=== PATIENT | female | born 1995 | race Caucasian/White ===

== ENCOUNTER → 2017-04-11 | Outpatient (CLI) | payer BC, OTHER ==
[~2017-04-11] MED LIST: ADVIN10/60 INH; ALBUAER19 INH; DROS1TAB24 PO; TRAZ50TA35 PO
[2017-04-13 14:19] LABS: CHLAMYDIA TRACH RNA*** NOT DETECTED (NOT DETECTED); GC (NEIS GONORRHOEAE)RNA** NOT DETECTED (NOT DETECTED)
== END | disposition home or self-care (01) ==
LOC: C.LABSPEC 15:18
PROVIDERS: ATTEND Obstetrics & Gynecology
DX: Z12.4 Encounter for screening for malignant neoplasm of cervix (principal)

== ENCOUNTER → 2017-04-11 | Outpatient (CLI) | payer BC, OTHER | END | disposition home or self-care (01) | LOC: C.PAPS 16:18 | PROVIDERS: ATTEND Obstetrics & Gynecology | DX: Z12.4 Encounter for screening for malignant neoplasm of cervix (principal) ==

== ENCOUNTER → 2017-04-15 | Outpatient (CLI) | payer BC ==
[2017-04-15 15:28] LABS: URINE APPEARANCE CLOUDY (CLEAR); URINE BILIRUBIN NEG (NEG); URINE COLOR YELLOW; URINE EPITHELIAL CELL AUTO >30 /lpf (0-5); URINE NITRITE NEG (NEG); URINE PH 7.5 (4.5-7.5); URINE SPECIFIC GRAVITY 1.015 (1.000-1.030); UROBILINOGEN NEG (NEG)
[2017-04-15 15:32] LABS: MANUAL MICROSCOPIC REQUIRED? NO; REVIEW REQ? YES
== END | disposition home or self-care (01) ==
LOC: C.LAB1850 11:35
PROVIDERS: ATTEND Obstetrics & Gynecology
DX: R31.9 Hematuria, unspecified (principal)

== ENCOUNTER 2023-09-26 14:25 | Inpatient (IN) ==
[2023-09-26] MEDS ORDERED: OXYTOCIN 30 UNITS/NSS 30 UNITS/500 ML BAG IV PRN (15:23)
[2023-09-26] MEDS ORDERED: LIDOCAINE 1% LOCAL 20 ML VIAL INFIL PRN (15:23)
[2023-09-26 15:49] LABS: Total Protein Urine Random 23.1 mg/dl (0-11.9)
[2023-09-26 15:55] LABS: Hematocrit (blood only) 36.4 % (37.0-47.0); Hemoglobin 11.9 g/dl (12.0-16.0); Mean Corpuscular Hemoglobin 25.8 pg (25.0-34.0); Mean Corpuscular Hgb Conc 32.7 g/dL (32.0-36.0); Mean Platelet Volume 11.8 fL (9.4-12.4); Platelet Count 203 K/uL (130-400); RDW Coefficient of Variation 15.8 % (11.5-14.5); RDW Standard Deviation 44.6 fL (36.4-46.3); Red Blood Count 4.61 M/uL (4.20-5.40); White Blood Count 10.64 K/ul (4.8-10.8)
[2023-09-26 15:55] LABS: Creatinine Urine Random 68.7 mg/dl; Protein Creatinine Ratio Urine 0.3 (0-0.2)
[2023-09-26 16:07] LABS: Alanine Aminotransferase 9 U/L (7-52); Albumin Globulin Ratio 0.9 (0.9-2); Alkaline Phosphatase 131 U/L (34-104); Anion Gap 7 (3-11); Aspartate Aminotransferase 18 U/L (13-39); BUN Creatinine Ratio 24.2 (10-20); Bilirubin,Total 0.2 mg/dl (0.2-1.0); Blood Urea Nitrogen 15 mg/dl (6-23); Calcium 8.9 mg/dl (8.6-10.3); Carbon Dioxide 27 mmol/L (21-32); Chloride 102 mmol/L (98-107); Est GFR (African American) 143.2 ml/min; Est GFR (Non-African American) 123.6 ml/min; Globulin 3.3 gm/dl (2.5-4.0); Glucose 90 mg/dl (70-99(Fasting)); Potassium 4.2 mmol/L (3.5-5.1); Sodium 136 mmol/L (136-145); Total Protein 6.3 gm/dl (6.0-8.3)
--- NOTE | 2023-09-26 16:15 | History & Physical Report ---
Date of Service September 26, 2023 Assessment & Plan (1) Obesity affecting : (2) Elevated blood pressure affecting in third trimester, antepartum: Plan: patient meets criteria for gestational hypertension and possible mild Pre- eclampsia at 37 5/7 weeks. PIH labs are normal except for elevated urine protein/creatinine ratio at 0.3. she has no PET symptoms and urine protein/creatinine ratio was 0.4 on 09/23. Her BP's in L&D on that day were all normal. will begin IOL with cervical balloon in place epidural analgesia when requested recheck PIH labs in 8 hours. (3) Supervision of normal intrauterine in primigravida: (4) GERD (gastroesophageal reflux disease): Plan: Continue home pepcid and Tums Plan Pt is a 27 yo at 37 5/7 WGA presenting to labor and delivery for induction d/t elevated BP, maternal obesity. Blood type; O+, GBS negative, rubella non-immune Jasmine balloon placed. Plan to start oxytocin and rupture membranes later if necessary. Proceed with labor and plan for vaginal delivery. Admission and Anticipated Discharge Date Admission Date: September 26, 2023 History of Present Illness Chief Complaint: elevated blood pressure Primary Care Provider: Ree Nino MD Pt is a 27 y/o female currently at 37 5/7 WGA with an AURORA of 10/12/23 as determined by LMP who is here for induction. Her was complicated by maternal obesity BMI >40 and elevated BP noted in office today. This was the second elevated BP. She was evaluated on 09/23 in L&D- PIH labs and BP's were all normal during her L&D observation. Pt states she is feeling okay today and so far she feels the has gone well. She states she has been out of her valacyclovir since but has not noticed any lesions the last few weeks. No questions at this time. No contractions; active movement; no fluid loss; no bloody show. External FHT and external uterine monitors used; Category I tracing; reactive FHT variability. She is GBS negative. Had regular appointments with OB. Labs: Blood Type O Positive 09/23/23 Antibody Screen NEGATIVE 09/23/23 Hemoglobin 12.3 g/dl (12.0-16.0) 09/23/23 Hematocrit 38.0 % (37.0-47.0) 09/23/23 Mean Corpuscular Volume 80.7 fL (80.0-100.0) 09/23/23 Platelet Count 211 K/uL (130-400) 09/23/23 Rubella IgG Antibody Non Immune (Immune) L 03/03/23 Rapid Plasma Reagin Nonreactive (Nonreactive) 03/03/23 Hepatitis B Surface Antigen. NON-REACTIVE (NON-REACTIVE) 03/03/23 Hepatitis C Antibody (EIA) NON-REACTIVE (NON-REACTIVE) 03/03/23 HIV (1&2) Ag and Ab Confirmation NON-REACTIVE (NON-REACTIVE) 03/03/23 Glucose 1 Hour 50 gm Load 141 mg/dl (70-130) H 04/28/23 OB Optional Labs: Chlamydia trachomatis RNA Not Detected (NotDetected) 03/03/23 Neisseria gonorrhoeae RNA Not Detected (NotDetected) 03/03/23 Thyroid Stimulating Hormone (TSH) 1.590 uIu/ml (0.300-4.500) 11/02/18 Allergies Allergy/AdvReac Type Severity Reaction Status Date / Time No Known Drug Allergies Allergy Unknown Verified 09/26/23 15:39 Home Medications Medication Instructions Recorded Confirmed Type albuterol sulfate 90 mcg/actuation 2 inh inhalation Q4H PRN shortness 05/24/23 09/26/23 Rx aerosol inhaler of breath or wheezing or cough #8.5 grams vit no.[id number] 1 tab PO DAILY 05/27/23 09/26/23 History [ Plus Vitamin-Mineral] valacyclovir 500 mg tablet 500 mg PO BID #60 tabs 09/02/23 09/26/23 Rx (Valtrex) breast pump #1 ea 09/16/23 09/26/23 Rx Patient History Medical History (Updated 09/23/23 @ 20:22 by Latasha Orosco, ) Migraines Vasovagal syncope with IV sticks and dehydration Suicide risk hx of suicidial thoughts- middle school age History of menorrhagia Common migraine without aura History of dysmenorrhea Tiredness Sleep disturbances night terrors Obesity Lactase deficiency Insomnia Generalized anxiety disorder on buspar prior to Encounter for gynecological examination Depression on meds prior to Asthma allergy induced- has rescue inhaler, used approx "awhile ago" Surgical History (Updated 09/23/23 @ 11:22 by Orquidea Mckeon RN) [place] teeth extracted 2019 History of tonsillectomy Family History Family/Other Adopted Mother Ovarian cancer Social History (Updated 09/23/23 @ 11:30 by Orquidea Mckeon RN) Smoking Status: Current every day smoker Tobacco Type: E-cigarettes / Vaping Second Hand Exposure: No; Do You Dip or Chew Tobacco: No; Hx Alcohol Use: No Hx Substance Use: No Preferred Language: Andorran Communication Ability: Effective Visual Impairment: No Limitations Hearing Ability: Normal Farm [employer] Required: No Beliefs That Will Affect Care: None marital status: Single marital status details: [place] (25) [phone] Current Living Situation: Family Current Living Situation Comment: lives with both parents (Tod and Paulino Thompson) current occupational status: employed current occupation: [employer] Feels Safe at Home: Yes Dental Care, Regularly: Yes Seatbelt Use: always Assistive Devices: Glasses Review of Systems no fever, no chills and no sweats no dyspnea no difficulty breathing no chest pain and no palpitations no dysuria no headache(s) no changes in vision Physical Exam Physical Exam: General: Alert, oriented. No acute distress. Cardiac: Regular rate and rhythm, no murmurs, gallops, or rubs. Respiratory: Clear to auscultation bilaterally a/p, no wheezes, rales, or rhonchi. No increased work of breathing. No respiratory distress. Abdomen: Gravid. Reactive FHTs. Position: vertex Lower extremities: No deep calf pain. Lidia's negative bilaterally. Genitourinary: OB Exam Abdomen: + vertex (by ultrasound) and + estimated weight (6-7 pounds) Manual OB Exam: + cervical dilation fingertip, + cervical effacement 70% and + station high (not in pelvis) OB Exam Monitor Tracing: + external FHT monitor used, + external uterine monitor used, + category I and + normal FHT variability speculum was placed vaginally, the cervix was visualized and a Jasmine catheter was inserted into the os with the assistance of a stylet. 40cc of sterile water were instilled into the balloon. the catheter was then placed on traction and secured to her left inner thigh. Results & Data Vital Signs (Past 12 Hours) Vital Signs Pulse BP 09/26/23 16:09 76 09/26/23 16:09 162/88 H 09/26/23 15:59 75 09/26/23 15:59 167/88 H 09/26/23 15:49 83 09/26/23 15:49 171/93 H 09/26/23 15:40 83 09/26/23 15:40 164/94 H 09/26/23 15:29 82 131/76 09/26/23 15:20 85 137/77 09/26/23 15:11 86 153/76 H 09/26/23 14:59 90 164/96 H 09/26/23 14:50 88 160/92 H Code Status & VTE Plan VTE Prophylaxis Plan VTE Prophylaxis will be ordered: No
[2023-09-26] MEDS ORDERED: CALCIUM CARBONATE 500 MG CHEWABLE TAB PO PRN (16:38)
[2023-09-26] MEDS ORDERED: ALBUTEROL HFA 8 GM INHALER INH PRN (16:39)
[2023-09-26] MEDS: LACTATED RINGER'S 1,000 ML IV PRN (17:24)
[2023-09-26] MEDS: OXYTOCIN 30 UNITS/NSS 30 UNITS/500 ML BAG IV PRN (19:03)
[2023-09-26] MEDS: FAMOTIDINE 20 MG TAB PO SCH (21:51)
[2023-09-26 23:30] LABS: Basophils # (auto) 0.04 K/uL (0.00-0.20); Basophils % (auto) 0.3 %; Eosinophils # (auto) 0.15 K/uL (0.00-0.50); Eosinophils % (auto) 1.2 %; Hematocrit (blood only) 38.1 % (37.0-47.0); Immature Granulocytes # (auto) 0.12 K/uL (0.01-0.20); Lymphocytes # (auto) 2.15 K/uL (1.20-3.40); Lymphocytes % (auto) 17.5 %; Mean Corpuscular Hemoglobin 25.3 pg (25.0-34.0); Mean Corpuscular Hgb Conc 31.5 g/dL (32.0-36.0); Mean Corpuscular Volume 80.4 fL (80.0-100.0); Monocytes # (auto) 0.55 K/uL (0.11-0.59); Monocytes % (auto) 4.5 %; Neutrophils % (auto) 75.5 %; Platelet Count 222 K/uL (130-400); RDW Coefficient of Variation 15.6 % (11.5-14.5); RDW Standard Deviation 44.4 fL (36.4-46.3); Red Blood Count 4.74 M/uL (4.20-5.40); White Blood Count 12.31 K/ul (4.8-10.8)
[2023-09-26 23:47] LABS: Creatinine Clr Calc Pharmacy 189.3 ml/min; Est GFR (African American) 139.6 ml/min; Est GFR (Non-African American) 120.5 ml/min
[2023-09-27] MEDS: LACTATED RINGER'S 1,000 ML IV PRN ×4 (01:51→19:57)
[2023-09-27] MEDS: BUTORPHANOL TARTRATE 1 MG/ML VIAL IV PRN ×2 (01:58→05:08)
[2023-09-27] MEDS: FAMOTIDINE 20 MG TAB PO SCH ×2 (10:00→22:29)
[2023-09-27] MEDS ORDERED: fentaNYL citrate PF 100 MCG/2 ML VIAL ONE (11:26)
[2023-09-27] MEDS ORDERED: SODIUM CHLORIDE 0.9% PF INJ 10 ML VIAL ONE (11:26)
[2023-09-27] MEDS ORDERED: ePHEDrine sulfate 50 MG/ML AMP ONE (11:26)
[2023-09-27] MEDS ORDERED: NALOXONE HCL 0.4 MG/1 ML VIAL/CARP IV PRN (11:27)
[2023-09-27] MEDS ORDERED: SODIUM CHLORIDE 0.9% PF INJ 10 ML VIAL EPI PRN (11:27)
[2023-09-27] MEDS ORDERED: NALBUPHINE HCL 5 MG in SYRINGE 0 ML IV PRN (11:27)
[2023-09-27] MEDS ORDERED: SODIUM CHLORIDE 0.9% PF INJ 10 ML VIAL EPI STA (11:27)
[2023-09-27] MEDS ORDERED: BUPIVACAINE 0.25% PF 30 ML VIAL EPI STA (11:27)
[2023-09-27] MEDS ORDERED: fentaNYL citrate PF 100 MCG/2 ML VIAL EPI PRN (11:27)
[2023-09-27] MEDS ORDERED: diphenhydrAMINE 50 MG/ML VIAL IV PRN (11:27)
[2023-09-27] MEDS ORDERED: ONDANSETRON INJ 2 MG/ML 2 ML VIAL IV PRN (11:27)
[2023-09-27] MEDS ORDERED: fentaNYL citrate PF 100 MCG/2 ML VIAL EPI STA (11:27)
[2023-09-27] MEDS ORDERED: ePHEDrine sulfate 50 MG/ML AMP IV PRN (11:27)
[2023-09-27] MEDS ORDERED: BUPIVACAINE 0.25% PF 30 ML VIAL EPI PRN (11:27)
[2023-09-27] MEDS ORDERED: LIDOCAINE 2%/EPINEPHRINE 1:200,000 20 ML PF EPI STA (11:27)
[2023-09-27] MEDS ORDERED: NALOXONE HCL 1 MG in SODIUM CHLORIDE 0.9% 1,000 ML IV PRN (11:27)
[2023-09-27] MEDS ORDERED: fentANYL 2 MCG/ML BUPIVacaine 0.125%-NSS 100ML BAG ONE (11:27)
[2023-09-27] MEDS ORDERED: BUPIVACAINE 0.25% PF 30 ML VIAL ONE (11:27)
[2023-09-27] MEDS ORDERED: LIDOCAINE 2% MPF LOCAL 5 ML VIAL EPI PRN (11:27)
[2023-09-27] MEDS ORDERED: LIDOCAINE 2%/EPINEPHRINE 1:200,000 20 ML PF ONE (11:27)
[2023-09-27] MEDS ORDERED: ROPIVACAINE 0.5% PF 5 MG/ML 20 ML VIAL EPI PRN (11:27)
--- NOTE | 2023-09-27 11:27 | Anesthesiology Consultation ---
Date of Service September 27, 2023 Assessment & Plan ASA ASA3 Proposed Anesthesia Anesthesia Type: Labor Epidural Risk / Benefits Reviewed With: PT / POA / Parent / Guardian, Accepts Plan and Informed Consent Obtained History Height/Weight Height: 5 ft 4 in Weight: 155.582 kg Allergies Allergy/AdvReac Type Severity Reaction Status Date / Time No Known Drug Allergies Allergy Unknown Verified 09/26/23 15:39 Medications Home Medications Medication Instructions Recorded Confirmed Last Taken albuterol sulfate 90 mcg/actuation 2 inh inhalation Q4H PRN shortness 05/24/23 09/26/23 Unknown aerosol inhaler of breath or wheezing or cough #8.5 grams vit no.[id number] 1 tab PO DAILY 05/27/23 09/26/23 09/21/23 [ Plus Vitamin-Mineral] valacyclovir 500 mg tablet 500 mg PO BID #60 tabs 09/02/23 09/26/23 09/23/23 (Valtrex) breast pump #1 ea 09/16/23 09/26/23 Unknown Active Medications Generic Name Dose Route Start Last Admin Trade Name Freq PRN Reason Stop Dose Admin Butorphanol Tartrate 1 mg 09/26/23 18:19 09/27/23 05:08 Butorphanol Tartrate 1 Mg/Ml Vial IV 10/26/23 18:18 1 mg Q2H PRN Administration Pain Famotidine 20 mg 09/26/23 21:00 09/27/23 10:00 Famotidine 20 Mg Tab PO 10/26/23 20:59 Not Given BID LYNETTE Oxytocin 30 units in 500 mls @ 24 mls/hr 09/26/23 15:23 09/27/23 11:00 Pitocin 30 Units/Nss IV 09/28/23 15:22 1.44 units/hr .[id number] PRN 24 mls/hr Labor Induction/Augmentation Titration Protocol 1.44 UNITS/HR Lactated Ringer's 1,000 mls @ 125 mls/hr 09/26/23 15:23 09/27/23 12:24 Lr IV 09/28/23 15:22 Infused .Q8H PRN Infusion L&D Protocol Protocol Past Medical History Medical History Migraines Vasovagal syncope with IV sticks and dehydration Suicide risk hx of suicidial thoughts- middle school age History of menorrhagia Common migraine without aura History of dysmenorrhea Tiredness Sleep disturbances night terrors Obesity Lactase deficiency Insomnia Generalized anxiety disorder on buspar prior to Encounter for gynecological examination Depression on meds prior to Asthma allergy induced- has rescue inhaler, used approx "awhile ago" Exercise / Class Metabolic Activity II 4-5 Yardwork/Stairs/Walk up hill Past Family History Family History Family/Other Adopted Mother Ovarian cancer Past Surgical History Surgical History [place] teeth extracted 2019 History of tonsillectomy Past Anesthesia History No Hx of Anesthesia Complications and No Family Hx of Anesthesia Complications History of PONV No Hx of PONV and No Hx of Motion Sickness Social History Smoking Status: Current every day smoker Do You Dip or Chew Tobacco: No Hx Alcohol Use: No Hx Substance Use: No Review of Systems denies fever/cough/ colds/ chest pain/ SOB/ MARGE denies MARGE Physical Exam Vital Signs Last Vital Signs Temp 36.7 C 09/27/23 07:11 Pulse 78 09/27/23 12:52 Resp 20 09/27/23 07:11 BP 159/75 H 09/27/23 12:52 Pulse Ox 96 09/27/23 12:47 ENMT Mouth: no TMJ abnormality and no dentition abnormality Thyromental Distance: > or= 3.5 Finger Breadths Mallampati Class: II Neck neck extension not limited Respiratory normal respiratory effort; no respiratory distress Auscultation: lungs clear to auscultation bilaterally Cardiovascular Rate/Rhythm: regular rate and regular rhythm Neurologic moves all extremities Psychiatric Orientation: alert and oriented x 3 Testing Laboratory Results 09/26/23 23:17 09/26/23 23:17
--- NOTE | 2023-09-27 11:27 | Labor Progress Brief Note ---
Date of Service September 27, 2023 Subjective Patient tolerating contractions without much evident pain. No LOF or VB, good FM. Assessment & Plan Admission and Anticipated Discharge Date Admission Date: September 26, 2023 Physical Exam Genitourinary: Pit @ 22 FHT Cat 1 [place] q3-4 Cvx 350/-2 Well applied vertex AROM for copious clear fluid, IUPC and FSE placed. Results & Data Vital Signs (Past 12 Hours) Vital Signs Temp Pulse Resp BP 09/27/23 11:18 84 162/97 H 09/27/23 10:10 81 155/83 H 09/27/23 10:03 79 139/80 09/27/23 09:10 78 175/85 H 09/27/23 08:10 74 151/83 H 09/27/23 08:01 75 143/96 H 09/27/23 07:11 98.1 F 81 20 145/92 H 09/27/23 06:10 68 144/84 H 09/27/23 05:10 85 138/84 09/27/23 04:10 75 139/77 09/27/23 04:00 18 09/27/23 04:00 98.2 F 18 09/27/23 03:10 69 139/75 09/27/23 02:10 70 141/67 H 09/27/23 02:00 82 141/81 H 09/26/23 23:28 18 09/26/23 23:28 98.4 F 18 09/26/23 23:28 107 H 09/26/23 23:28 168/88 H Coding Level of Care Code None
--- NOTE | 2023-09-27 17:04 | Labor Progress Brief Note ---
Date of Service September 27, 2023 Subjective Comfortable with epidural Assessment & Plan (1) Elevated blood pressure affecting in third trimester, antepartum: Plan: Continue IOL, gHTN vs mild preeclampsia, progressing towards delivery. Admission and Anticipated Discharge Date Admission Date: September 26, 2023 Physical Exam Genitourinary: Cvx /-2 Lof Clear FHT Cat 1 [place] 5-6 Pit currently off for a desaturation break Results & Data Vital Signs (Past 12 Hours) Vital Signs Temp Pulse Resp BP Pulse Ox 09/27/23 16:54 71 91 09/27/23 16:52 67 100 09/27/23 16:47 67 100 09/27/23 16:45 75 163/88 H 91 09/27/23 16:42 75 100 09/27/23 16:38 77 91 09/27/23 16:37 76 98 09/27/23 16:32 69 99 09/27/23 16:29 60 144/84 H 09/27/23 16:27 64 100 09/27/23 16:22 62 100 09/27/23 16:17 71 100 09/27/23 16:16 90 90 09/27/23 16:12 73 96 09/27/23 16:10 87 92 09/27/23 16:07 70 99 09/27/23 16:02 72 100 09/27/23 16:01 75 137/90 09/27/23 15:57 71 98 09/27/23 15:52 72 100 09/27/23 15:47 69 96 09/27/23 15:46 70 94 09/27/23 15:44 77 139/80 09/27/23 15:42 82 98 09/27/23 15:37 65 100 09/27/23 15:32 69 100 09/27/23 15:30 72 136/82 09/27/23 15:27 66 100 09/27/23 15:22 68 99 09/27/23 15:17 68 100 09/27/23 15:16 68 136/79 09/27/23 15:12 63 100 09/27/23 15:07 67 99 09/27/23 15:02 65 99 09/27/23 15:01 68 152/81 H 09/27/23 14:57 67 100 09/27/23 14:52 68 99 09/27/23 14:47 67 100 09/27/23 14:45 62 144/85 H 09/27/23 14:42 68 100 09/27/23 14:39 81 93 09/27/23 14:37 85 99 09/27/23 14:32 67 100 09/27/23 14:30 65 143/83 H 09/27/23 14:27 69 100 09/27/23 14:22 69 100 09/27/23 14:17 66 100 09/27/23 14:14 71 143/86 H 09/27/23 14:12 69 99 09/27/23 14:07 78 100 09/27/23 14:02 97 09/27/23 14:02 83 09/27/23 14:02 74 89 L 09/27/23 14:00 71 156/93 H 09/27/23 13:57 68 100 09/27/23 13:52 66 98 09/27/23 13:50 69 89 L 09/27/23 13:47 66 98 09/27/23 13:44 73 156/88 H 09/27/23 13:42 74 99 09/27/23 13:37 69 98 09/27/23 13:32 68 99 09/27/23 13:29 71 155/86 H 09/27/23 13:27 70 96 09/27/23 13:22 72 96 09/27/23 13:17 72 96 09/27/23 13:16 77 158/80 H 09/27/23 13:12 80 95 09/27/23 13:07 76 96 09/27/23 13:02 74 95 09/27/23 12:59 77 94 09/27/23 12:57 74 97 09/27/23 12:56 76 159/77 H 09/27/23 12:52 97 09/27/23 12:52 73 09/27/23 12:52 78 159/75 H 09/27/23 12:47 76 96 09/27/23 12:46 71 150/81 H 09/27/23 12:42 73 97 09/27/23 12:41 74 146/76 H 09/27/23 12:37 97 09/27/23 12:37 75 09/27/23 12:37 76 145/73 H 09/27/23 12:32 89 97 09/27/23 12:30 82 147/85 H 09/27/23 12:27 81 146/85 H 97 09/27/23 12:26 84 142/83 H 09/27/23 12:24 94 H 140/78 09/27/23 12:22 100 09/27/23 12:22 87 09/27/23 12:22 88 157/90 H 09/27/23 12:19 81 153/87 H 09/27/23 12:17 81 98 09/27/23 12:13 88 86 L 09/27/23 12:12 85 96 09/27/23 12:07 88 99 09/27/23 12:02 90 89 L 09/27/23 12:01 97 H 94 09/27/23 11:57 95 H 100 09/27/23 11:55 106 H 141/95 H 09/27/23 11:52 107 H 97 09/27/23 11:47 100 09/27/23 11:47 115 H 09/27/23 11:47 115 H 93 09/27/23 11:42 98 09/27/23 11:42 79 09/27/23 11:42 221 H 78 L 09/27/23 11:18 84 162/97 H 09/27/23 10:10 81 155/83 H 09/27/23 10:03 79 139/80 09/27/23 09:10 78 175/85 H 09/27/23 08:10 74 151/83 H 09/27/23 08:01 75 143/96 H 09/27/23 07:11 98.1 F 81 20 145/92 H 09/27/23 06:10 68 144/84 H 09/27/23 05:10 85 138/84 Coding Level of Care Code None Diagnoses Elevated blood pressure affecting in third trimester, antepartum O16.3
[2023-09-27] MEDS: fentANYL 2 MCG/ML BUPIVacaine 0.125%-NSS 100ML BAG EPI PRN (19:54)
--- NOTE | 2023-09-27 23:05 | Labor Progress Brief Note ---
Date of Service September 27, 2023 Subjective Sleeping when I entered her room. [place]. Notes pain in R hip when it is flexed upwards to allow vaginal exam but no c/o pain otherwise. Assessment & Plan (1) Mild preeclampsia: Plan: Pitocin at 30mu/min with slight but definite cervical change, to 6/90/-1. status reassuring. Small bloody show visible at perineum. MVU have been briefly adequate at times throughout the day, but have not been persistently adequate for any significant length of time. LOF remains clear on chux Given interval dilation, though not moving at a typical labor curve, will continue. Did discuss with the patient and her support persons at this time the risks associated with prolonged pitocin use, the slow progress to this point, and asked their feelings about the possibility of a should the need ultimately arise. Patient has considered this and would accept it if advised but is hoping for vaginal. No change to management now given the above. Admission and Anticipated Discharge Date Admission Date: September 26, 2023 Results & Data Vital Signs (Past 12 Hours) Vital Signs Temp Pulse Resp BP Pulse Ox 09/27/23 22:52 83 100 09/27/23 22:47 85 99 09/27/23 22:45 83 144/85 H 09/27/23 22:43 92 H 91 09/27/23 22:42 92 H 97 09/27/23 22:37 83 98 09/27/23 22:32 73 99 09/27/23 22:29 78 169/84 H 09/27/23 22:27 79 100 09/27/23 22:22 73 99 09/27/23 22:17 80 100 09/27/23 22:14 75 157/90 H 09/27/23 22:12 80 100 09/27/23 22:07 74 100 09/27/23 22:02 73 99 09/27/23 21:59 75 159/90 H 09/27/23 21:57 72 100 09/27/23 21:52 68 100 09/27/23 21:47 71 100 09/27/23 21:45 71 158/95 H 09/27/23 21:42 75 100 09/27/23 21:37 75 99 09/27/23 21:32 90 100 09/27/23 21:31 88 91 09/27/23 21:27 72 100 09/27/23 21:22 73 100 09/27/23 21:17 74 99 09/27/23 21:14 75 135/81 09/27/23 21:12 75 99 09/27/23 21:07 73 100 09/27/23 21:02 71 100 09/27/23 20:59 70 139/77 09/27/23 20:57 73 100 09/27/23 20:52 71 100 09/27/23 20:47 75 100 09/27/23 20:44 72 138/68 09/27/23 20:42 74 99 09/27/23 20:37 75 98 09/27/23 20:32 70 99 09/27/23 20:29 82 136/73 09/27/23 20:27 75 100 09/27/23 20:22 78 100 09/27/23 20:20 77 90 09/27/23 20:17 81 100 09/27/23 20:14 68 147/74 H 09/27/23 20:12 79 99 09/27/23 20:07 74 100 09/27/23 20:02 71 100 09/27/23 20:00 98.1 F 69 20 127/70 09/27/23 19:57 84 100 09/27/23 19:52 78 100 09/27/23 19:48 91 H 90 09/27/23 19:47 94 H 100 09/27/23 19:44 70 150/84 H 09/27/23 19:42 73 100 09/27/23 19:37 84 100 09/27/23 19:32 77 99 09/27/23 19:29 78 163/93 H 09/27/23 19:27 76 100 09/27/23 19:25 87 93 09/27/23 19:22 94 H 99 09/27/23 19:18 85 93 09/27/23 19:17 75 100 09/27/23 19:15 77 161/91 H 09/27/23 19:12 99 09/27/23 19:12 74 09/27/23 19:12 81 93 09/27/23 19:07 71 100 09/27/23 19:02 73 100 09/27/23 19:01 71 142/96 H 09/27/23 18:57 81 100 09/27/23 18:52 84 99 01/23/24 18:47 73 100 09/27/23 18:44 76 159/98 H 09/27/23 18:42 77 100 09/27/23 18:37 79 100 09/27/23 18:32 72 100 09/27/23 18:31 81 93 09/27/23 18:30 88 20 144/89 H 09/27/23 18:27 81 100 09/27/23 18:22 70 99 09/27/23 18:17 73 100 09/27/23 18:14 78 158/90 H 09/27/23 18:12 84 98 09/27/23 18:07 72 100 09/27/23 18:02 67 99 09/27/23 17:59 75 158/85 H 09/27/23 17:57 67 100 09/27/23 17:52 72 100 09/27/23 17:47 74 100 09/27/23 17:46 63 172/86 H 09/27/23 17:42 66 100 09/27/23 17:37 69 99 09/27/23 17:32 75 100 09/27/23 17:31 68 158/89 H 09/27/23 17:27 71 100 09/27/23 17:22 68 100 09/27/23 17:17 69 100 09/27/23 17:14 64 156/86 H 09/27/23 17:12 66 100 09/27/23 17:07 66 100 09/27/23 17:02 68 100 09/27/23 16:59 98.2 F 67 18 159/89 H 09/27/23 16:57 64 100 09/27/23 16:54 71 91 09/27/23 16:52 67 100 09/27/23 16:47 67 100 09/27/23 16:45 75 163/88 H 91 09/27/23 16:42 75 100 09/27/23 16:38 77 91 09/27/23 16:37 76 98 09/27/23 16:32 69 99 09/27/23 16:29 60 144/84 H 09/27/23 16:27 64 100 09/27/23 16:22 62 100 09/27/23 16:17 71 100 09/27/23 16:16 90 90 09/27/23 16:12 73 96 09/27/23 16:10 87 92 09/27/23 16:07 70 99 09/27/23 16:02 72 100 09/27/23 16:01 75 20 137/90 09/27/23 15:57 71 98 09/27/23 15:52 72 100 09/27/23 15:47 69 96 09/27/23 15:46 70 94 09/27/23 15:44 77 139/80 09/27/23 15:42 82 98 09/27/23 15:37 65 100 09/27/23 15:32 69 100 09/27/23 15:30 72 136/82 09/27/23 15:27 66 100 09/27/23 15:22 68 99 09/27/23 15:17 68 100 09/27/23 15:16 98.2 F 68 20 136/79 09/27/23 15:12 63 100 09/27/23 15:07 67 99 09/27/23 15:02 65 99 09/27/23 15:01 68 152/81 H 09/27/23 14:57 67 100 09/27/23 14:52 68 99 09/27/23 14:47 67 100 09/27/23 14:45 62 144/85 H 09/27/23 14:42 68 100 09/27/23 14:39 81 93 09/27/23 14:37 85 99 09/27/23 14:32 67 100 09/27/23 14:30 65 143/83 H 09/27/23 14:27 69 100 09/27/23 14:22 69 100 09/27/23 14:17 66 100 09/27/23 14:14 71 20 143/86 H 09/27/23 14:12 69 99 09/27/23 14:07 78 100 09/27/23 14:02 97 09/27/23 14:02 83 09/27/23 14:02 74 89 L 09/27/23 14:00 71 156/93 H 09/27/23 13:57 68 100 09/27/23 13:52 66 98 09/27/23 13:50 69 89 L 09/27/23 13:47 66 98 09/27/23 13:44 73 156/88 H 09/27/23 13:42 74 99 09/27/23 13:37 69 98 01/23/24 13:32 68 99 09/27/23 13:29 71 155/86 H 09/27/23 13:27 70 96 09/27/23 13:22 72 96 09/27/23 13:17 72 96 09/27/23 13:16 98.4 F 77 20 158/80 H 09/27/23 13:12 80 95 09/27/23 13:07 76 96 09/27/23 13:02 74 95 09/27/23 12:59 77 94 09/27/23 12:57 74 97 09/27/23 12:56 76 159/77 H 09/27/23 12:52 97 09/27/23 12:52 73 09/27/23 12:52 78 159/75 H 09/27/23 12:47 76 96 09/27/23 12:46 71 150/81 H 09/27/23 12:42 73 97 09/27/23 12:41 74 146/76 H 09/27/23 12:37 97 09/27/23 12:37 75 09/27/23 12:37 76 145/73 H 09/27/23 12:32 89 97 09/27/23 12:30 82 147/85 H 09/27/23 12:27 81 146/85 H 97 09/27/23 12:26 84 142/83 H 09/27/23 12:24 94 H 140/78 09/27/23 12:22 100 09/27/23 12:22 87 09/27/23 12:22 88 157/90 H 09/27/23 12:19 81 20 153/87 H 09/27/23 12:17 81 98 09/27/23 12:13 88 86 L 09/27/23 12:12 85 96 09/27/23 12:07 88 99 09/27/23 12:02 90 89 L 09/27/23 12:01 97 H 94 09/27/23 11:57 95 H 100 09/27/23 11:55 106 H 141/95 H 09/27/23 11:52 107 H 97 09/27/23 11:47 100 09/27/23 11:47 115 H 09/27/23 11:47 115 H 93 09/27/23 11:42 98 09/27/23 11:42 79 09/27/23 11:42 221 H 78 L 09/27/23 11:18 84 20 162/97 H Coding Level of Care Code None Diagnoses Mild preeclampsia O14.00
[2023-09-27] MEDS: OXYTOCIN 30 UNITS/NSS 30 UNITS/500 ML BAG IV PRN (23:33)
--- NOTE | 2023-09-28 01:42 | Labor Progress Brief Note ---
Date of Service September 28, 2023 Subjective Patient sleeping when I entered the room. After exam, when she was informed of unchanged cervix, she said "I'm hungry and want to be done, I want to eat. I guess we should just do the even though I don't want one." Conversation between patient and her support persons ensued and she then said she would be willing to continue IOL. Assessment & Plan (1) Mild preeclampsia: Plan: Patient counseled on options including vs continued IOL. Has not achieved sustained adequate MVU. In particular her MVU have fallen well below their peak levels recently. Offered break from pitocin to desaturate and attempt to get better contraction strength. Has not demonstrated failure to progress as she has not had 6 hours of adequate ctx. Is certainly at risk of fa iled induction due to inability to achieve adequacy despite significant pitocin administration. At this time patient decides after talking with her mother to continue IOL with a break to desaturate receptors and then resume pitocin. Admission and Anticipated Discharge Date Admission Date: September 26, 2023 Physical Exam Genitourinary: /- (unchanged from previous exam) FHT Cat 1 [place] Q5-6 Pit @ 30 Fluid remains clear Results & Data Vital Signs (Past 12 Hours) Vital Signs Temp Pulse Resp BP Pulse Ox O2 Del Method 09/28/23 01:32 80 100 09/28/23 01:29 93 H 164/93 H 09/28/23 01:27 89 100 09/28/23 01:23 81 91 09/28/23 01:22 79 95 09/28/23 01:17 73 98 09/28/23 01:14 78 164/87 H 09/28/23 01:12 74 99 09/28/23 01:07 73 98 09/28/23 01:02 75 99 09/28/23 01:00 79 16 163/90 H 09/28/23 00:57 75 100 09/28/23 00:52 73 100 09/28/23 00:47 70 100 09/28/23 00:45 75 162/97 H 09/28/23 00:42 78 100 09/28/23 00:39 18 09/28/23 00:39 98.4 F 18 09/28/23 00:37 96 H 100 09/28/23 00:33 93 H 93 09/28/23 00:32 90 100 09/28/23 00:29 85 145/71 H 09/28/23 00:27 79 97 09/28/23 00:22 77 99 09/28/23 00:17 72 99 09/28/23 00:15 79 146/73 H 09/28/23 00:12 74 99 09/28/23 00:07 80 100 09/28/23 00:02 73 99 09/28/23 00:00 78 16 159/74 H 09/27/23 23:57 75 99 09/27/23 23:52 77 99 09/27/23 23:47 78 98 09/27/23 23:44 77 145/79 H 09/27/23 23:42 83 100 09/27/23 23:37 75 99 09/27/23 23:32 82 100 09/27/23 23:30 16 09/27/23 23:30 16 09/27/23 23:29 71 147/79 H 09/27/23 23:27 73 99 09/27/23 23:22 77 100 09/27/23 23:17 75 100 09/27/23 23:16 81 149/85 H 09/27/23 23:14 75 90 09/27/23 23:12 75 100 09/27/23 23:10 Room Air 09/27/23 23:07 70 100 09/27/23 23:02 92 H 97 09/27/23 23:00 20 09/27/23 23:00 98.4 F 20 09/27/23 22:59 79 155/78 H 09/27/23 22:57 82 100 09/27/23 22:52 83 100 09/27/23 22:47 85 99 09/27/23 22:45 83 144/85 H 09/27/23 22:43 92 H 91 09/27/23 22:42 92 H 97 09/27/23 22:37 83 98 09/27/23 22:32 73 99 09/27/23 22:29 78 169/84 H 09/27/23 22:27 79 100 09/27/23 22:22 73 99 09/27/23 22:17 80 100 09/27/23 22:14 75 157/90 H 09/27/23 22:12 80 100 09/27/23 22:07 74 100 09/27/23 22:02 73 99 09/27/23 21:59 75 159/90 H 09/27/23 21:57 72 100 09/27/23 21:52 68 100 09/27/23 21:47 71 100 09/27/23 21:45 71 158/95 H 09/27/23 21:42 75 100 09/27/23 21:37 75 99 09/27/23 21:32 90 100 09/27/23 21:31 88 91 09/27/23 21:27 72 100 09/27/23 21:22 73 100 09/27/23 21:17 74 99 09/27/23 21:14 75 135/81 09/27/23 21:12 75 99 09/27/23 21:07 73 100 09/27/23 21:02 71 100 09/27/23 20:59 70 139/77 09/27/23 20:57 73 100 09/27/23 20:52 71 100 09/27/23 20:47 75 100 09/27/23 20:44 72 138/68 09/27/23 20:42 74 99 09/27/23 20:37 75 98 09/27/23 20:32 70 99 09/27/23 20:29 82 136/73 09/27/23 20:27 75 100 09/27/23 20:22 78 100 09/27/23 20:20 77 90 09/27/23 20:17 81 100 09/27/23 20:14 68 147/74 H 09/27/23 20:12 79 99 09/27/23 20:07 74 100 09/27/23 20:02 71 100 09/27/23 20:00 98.1 F 69 20 127/70 09/27/23 19:57 84 100 09/27/23 19:52 78 100 09/27/23 19:48 91 H 90 09/27/23 19:47 94 H 100 09/27/23 19:44 70 150/84 H 09/27/23 19:42 73 100 09/27/23 19:37 84 100 09/27/23 19:32 77 99 09/27/23 19:29 78 163/93 H 09/27/23 19:27 76 100 09/27/23 19:25 87 93 09/27/23 19:22 94 H 99 09/27/23 19:18 85 93 09/27/23 19:17 75 100 09/27/23 19:15 77 161/91 H 09/27/23 19:12 99 09/27/23 19:12 74 09/27/23 19:12 81 93 09/27/23 19:07 71 100 09/27/23 19:02 73 100 09/27/23 19:01 71 142/96 H 09/27/23 18:57 81 100 09/27/23 18:52 84 99 09/27/23 18:47 73 100 09/27/23 18:44 76 159/98 H 09/27/23 18:42 77 100 09/27/23 18:37 79 100 09/27/23 18:32 72 100 09/27/23 18:31 81 93 09/27/23 18:30 88 20 144/89 H 09/27/23 18:27 81 100 09/27/23 18:22 70 99 09/27/23 18:17 73 100 09/27/23 18:14 78 158/90 H 09/27/23 18:12 84 98 09/27/23 18:07 72 100 09/27/23 18:02 67 99 09/27/23 17:59 75 158/85 H 09/27/23 17:57 67 100 09/27/23 17:52 72 100 09/27/23 17:47 74 100 09/27/23 17:46 63 172/86 H 09/27/23 17:42 66 100 09/27/23 17:37 69 99 09/27/23 17:32 75 100 09/27/23 17:31 68 158/89 H 09/27/23 17:27 71 100 09/27/23 17:22 68 100 09/27/23 17:17 69 100 09/27/23 17:14 64 156/86 H 09/27/23 17:12 66 100 09/27/23 17:07 66 100 09/27/23 17:02 68 100 09/27/23 16:59 98.2 F 67 18 159/89 H 09/27/23 16:57 64 100 09/27/23 16:54 71 91 09/27/23 16:52 67 100 09/27/23 16:47 67 100 09/27/23 16:45 75 163/88 H 91 09/27/23 16:42 75 100 09/27/23 16:38 77 91 09/27/23 16:37 76 98 09/27/23 16:32 69 99 09/27/23 16:29 60 144/84 H 09/27/23 16:27 64 100 09/27/23 16:22 62 100 09/27/23 16:17 71 100 09/27/23 16:16 90 90 09/27/23 16:12 73 96 09/27/23 16:10 87 92 09/27/23 16:07 70 99 09/27/23 16:02 72 100 09/27/23 16:01 75 20 137/90 09/27/23 15:57 71 98 09/27/23 15:52 72 100 09/27/23 15:47 69 96 09/27/23 15:46 70 94 09/27/23 15:44 77 139/80 09/27/23 15:42 82 98 09/27/23 15:37 65 100 09/27/23 15:32 69 100 09/27/23 15:30 72 136/82 09/27/23 15:27 66 100 09/27/23 15:22 68 99 09/27/23 15:17 68 100 09/27/23 15:16 98.2 F 68 20 136/79 09/27/23 15:12 63 100 09/27/23 15:07 67 99 09/27/23 15:02 65 99 09/27/23 15:01 68 152/81 H 09/27/23 14:57 67 100 09/27/23 14:52 68 99 09/27/23 14:47 67 100 09/27/23 14:45 62 144/85 H 09/27/23 14:42 68 100 09/27/23 14:39 81 93 09/27/23 14:37 85 99 09/27/23 14:32 67 100 09/27/23 14:30 65 143/83 H 09/27/23 14:27 69 100 09/27/23 14:22 69 100 09/27/23 14:17 66 100 09/27/23 14:14 71 20 143/86 H 09/27/23 14:12 69 99 09/27/23 14:07 78 100 09/27/23 14:02 97 09/27/23 14:02 83 09/27/23 14:02 74 89 L 09/27/23 14:00 71 156/93 H 09/27/23 13:57 68 100 09/27/23 13:52 66 98 09/27/23 13:50 69 89 L 09/27/23 13:47 66 98 09/27/23 13:44 73 156/88 H 09/27/23 13:42 74 99 Coding Level of Care Code None Diagnoses Mild preeclampsia O14.00
[2023-09-28] MEDS: fentANYL 2 MCG/ML BUPIVacaine 0.125%-NSS 100ML BAG EPI PRN ×2 (02:35→08:30)
[2023-09-28] MEDS: LACTATED RINGER'S 1,000 ML IV PRN (03:48)
[2023-09-28] MEDS ORDERED: AZITHROMYCIN 500 MG in DEXTROSE 5% 250 ML IV SCH (06:00)
--- NOTE | 2023-09-28 07:32 | Labor Progress Brief Note ---
Date of Service September 28, 2023 Subjective Comfortable with epidural, sitting high-fowlers and was just recently positioned that way. Assessment & Plan (1) Mild preeclampsia: Plan Patient states "I don't want a if I don't have to have one." Discussed there is definite change between last exam and this one, but it is minimal. She is not following a typical labor curve. status has been reassuring throughout. Support persons remain at bedside and encouraging. At this time patient wishes to continue IOL. She continues to request food, plans to order pizza to have after she delivers. Advised only clear liquids if we are continuing IOL and patient asks for water and jello, stating she prefer to continue IOL. Admission and Anticipated Discharge Date Admission Date: September 26, 2023 Physical Exam Genitourinary: /0 FHT Cat 1 (140 mod hue +acc -dec) [place] Q4 regular pattern Pit @ 30 MVU not adequate Results & Data Vital Signs (Past 12 Hours) Vital Signs Temp Pulse Resp BP Pulse Ox O2 Del Method 09/28/23 07:18 108 H 97 09/28/23 07:13 114 H 100 09/28/23 07:10 103 H 85 L 09/28/23 07:08 102 H 97 09/28/23 07:07 87 161/83 H 09/28/23 07:03 83 100 09/28/23 07:00 18 09/28/23 07:00 18 09/28/23 06:58 76 100 09/28/23 06:53 83 100 09/28/23 06:52 85 140/76 09/28/23 06:48 89 100 09/28/23 06:45 98.6 F 09/28/23 06:43 83 96 09/28/23 06:38 88 99 09/28/23 06:37 82 154/75 H 09/28/23 06:33 83 98 09/28/23 06:30 16 09/28/23 06:30 16 09/28/23 06:28 81 99 09/28/23 06:23 85 99 09/28/23 06:21 85 140/71 09/28/23 06:18 86 98 09/28/23 06:13 82 100 09/28/23 06:08 84 100 09/28/23 06:06 86 147/76 H 09/28/23 06:03 81 99 09/28/23 06:00 16 09/28/23 06:00 16 09/28/23 05:58 80 100 09/28/23 05:53 81 100 09/28/23 05:51 86 149/76 H 09/28/23 05:48 80 99 09/28/23 05:43 83 100 09/28/23 05:38 84 100 09/28/23 05:37 85 150/72 H 09/28/23 05:33 81 100 09/28/23 05:30 18 09/28/23 05:30 18 09/28/23 05:28 86 100 09/28/23 05:23 99 H 90 09/28/23 05:22 83 09/28/23 05:22 88 131/68 88 L 09/28/23 05:17 96 H 98 09/28/23 05:12 95 H 100 09/28/23 05:11 91 H 89 L 09/28/23 05:07 108 H 98 09/28/23 05:03 88 92 09/28/23 05:02 93 H 100 09/28/23 05:00 18 09/28/23 05:00 18 09/28/23 04:57 91 H 97 09/28/23 04:52 75 97 09/28/23 04:51 78 138/63 09/28/23 04:47 78 98 09/28/23 04:42 83 98 09/28/23 04:37 84 128/66 100 09/28/23 04:32 78 99 09/28/23 04:30 18 09/28/23 04:30 98.2 F 18 09/28/23 04:27 83 100 09/28/23 04:22 100 09/28/23 04:22 85 09/28/23 04:22 90 136/65 09/28/23 04:17 78 100 09/28/23 04:12 92 H 99 09/28/23 04:07 85 142/70 H 99 09/28/23 04:02 80 100 09/28/23 04:00 16 09/28/23 04:00 16 09/28/23 03:57 82 100 09/28/23 03:52 100 09/28/23 03:52 87 01/24/24 03:52 85 123/58 L 09/28/23 03:47 80 100 09/28/23 03:42 79 98 09/28/23 03:37 100 09/28/23 03:37 81 09/28/23 03:37 82 121/61 09/28/23 03:32 82 100 09/28/23 03:30 16 09/28/23 03:30 16 09/28/23 03:27 81 99 09/28/23 03:22 80 100 09/28/23 03:21 83 131/62 09/28/23 03:17 83 99 09/28/23 03:12 78 99 09/28/23 03:07 78 100 09/28/23 03:05 85 127/64 09/28/23 03:02 79 100 09/28/23 03:00 16 09/28/23 03:00 16 09/28/23 02:57 79 100 09/28/23 02:52 86 100 09/28/23 02:51 81 142/63 H 09/28/23 02:47 94 09/28/23 02:47 108 H 09/28/23 02:47 105 H 94 09/28/23 02:42 92 H 100 09/28/23 02:37 86 100 09/28/23 02:35 88 138/67 09/28/23 02:32 90 100 09/28/23 02:31 98.2 F 93 H 89 L 09/28/23 02:30 18 09/28/23 02:30 18 09/28/23 02:27 99 H 98 09/28/23 02:23 81 93 09/28/23 02:22 80 99 09/28/23 02:17 77 99 09/28/23 02:14 78 168/93 H 09/28/23 02:12 79 98 09/28/23 02:07 78 97 09/28/23 02:02 77 99 09/28/23 02:01 83 174/88 H 09/28/23 02:00 16 09/28/23 02:00 16 09/28/23 01:57 81 99 09/28/23 01:52 83 99 09/28/23 01:47 77 99 09/28/23 01:45 75 148/90 H 09/28/23 01:42 75 100 09/28/23 01:37 72 99 09/28/23 01:32 80 100 09/28/23 01:30 18 09/28/23 01:30 18 09/28/23 01:29 93 H 164/93 H 09/28/23 01:27 89 100 09/28/23 01:23 81 91 09/28/23 01:22 79 95 09/28/23 01:17 73 98 09/28/23 01:14 78 164/87 H 09/28/23 01:12 74 99 09/28/23 01:07 73 98 09/28/23 01:02 75 99 09/28/23 01:00 79 16 163/90 H 09/28/23 00:57 75 100 09/28/23 00:52 73 100 09/28/23 00:47 70 100 09/28/23 00:45 75 162/97 H 09/28/23 00:42 78 100 09/28/23 00:39 18 09/28/23 00:39 98.4 F 18 09/28/23 00:37 96 H 100 09/28/23 00:33 93 H 93 09/28/23 00:32 90 100 09/28/23 00:29 85 145/71 H 09/28/23 00:27 79 97 09/28/23 00:22 77 99 09/28/23 00:17 72 99 09/28/23 00:15 79 146/73 H 09/28/23 00:12 74 99 09/28/23 00:07 80 100 09/28/23 00:02 73 99 09/28/23 00:00 78 16 159/74 H 09/27/23 23:57 75 99 09/27/23 23:52 77 99 09/27/23 23:47 78 98 09/27/23 23:44 77 145/79 H 09/27/23 23:42 83 100 09/27/23 23:37 75 99 09/27/23 23:32 82 100 09/27/23 23:30 16 09/27/23 23:30 16 09/27/23 23:29 71 147/79 H 09/27/23 23:27 73 99 09/27/23 23:22 77 100 09/27/23 23:17 75 100 09/27/23 23:16 81 149/85 H 09/27/23 23:14 75 90 09/27/23 23:12 75 100 09/27/23 23:10 Room Air 09/27/23 23:07 70 100 09/27/23 23:02 92 H 97 09/27/23 23:00 20 09/27/23 23:00 98.4 F 20 09/27/23 22:59 79 155/78 H 09/27/23 22:57 82 100 09/27/23 22:52 83 100 09/27/23 22:47 85 99 09/27/23 22:45 83 144/85 H 09/27/23 22:43 92 H 91 09/27/23 22:42 92 H 97 09/27/23 22:37 83 98 09/27/23 22:32 73 99 09/27/23 22:29 78 169/84 H 09/27/23 22:27 79 100 09/27/23 22:22 73 99 09/27/23 22:17 80 100 09/27/23 22:14 75 157/90 H 09/27/23 22:12 80 100 09/27/23 22:07 74 100 09/27/23 22:02 73 99 09/27/23 21:59 75 159/90 H 09/27/23 21:57 72 100 09/27/23 21:52 68 100 09/27/23 21:47 71 100 09/27/23 21:45 71 158/95 H 09/27/23 21:42 75 100 09/27/23 21:37 75 99 09/27/23 21:32 90 100 09/27/23 21:31 88 91 09/27/23 21:27 72 100 09/27/23 21:22 73 100 09/27/23 21:17 74 99 09/27/23 21:14 75 135/81 09/27/23 21:12 75 99 09/27/23 21:07 73 100 09/27/23 21:02 71 100 09/27/23 20:59 70 139/77 09/27/23 20:57 73 100 09/27/23 20:52 71 100 09/27/23 20:47 75 100 09/27/23 20:44 72 138/68 09/27/23 20:42 74 99 09/27/23 20:37 75 98 09/27/23 20:32 70 99 01/23/24 20:29 82 136/73 09/27/23 20:27 75 100 09/27/23 20:22 78 100 09/27/23 20:20 77 90 09/27/23 20:17 81 100 09/27/23 20:14 68 147/74 H 09/27/23 20:12 79 99 09/27/23 20:07 74 100 09/27/23 20:02 71 100 09/27/23 20:00 98.1 F 69 20 127/70 09/27/23 19:57 84 100 09/27/23 19:52 78 100 09/27/23 19:48 91 H 90 09/27/23 19:47 94 H 100 09/27/23 19:44 70 150/84 H 09/27/23 19:42 73 100 09/27/23 19:37 84 100 09/27/23 19:32 77 99 09/27/23 19:29 78 163/93 H 09/27/23 19:27 76 100 09/27/23 19:25 87 93 Coding Level of Care Code None Diagnoses Mild preeclampsia O14.00
[2023-09-28] MEDS ORDERED: SODIUM CHLORIDE 0.9% 250 ML IV PRN (08:55)
[2023-09-28] MEDS ORDERED: LACTATED RINGER'S 1,000 ML IV SCH (09:00)
--- NOTE | 2023-09-28 09:02 | Obstetrical Progress Note ---
Date of Service September 28, 2023 Assessment & Plan Admission and Anticipated Discharge Date Admission Date: September 26, 2023 Subjective Signed over from call from [address] Buitrago the previous provider for 24 hours in depth and also reviewed her chart in depth I also checked the patient this morning she has 5 cm I had this confirm with Nohemi Hood as well and she also felt the patient was [address] Buitrago had thought she was 6 cm and this is well within the margin of error of different providers checking but I think in essence it suggests no change I reviewed her chart I think she was not made significant change in the last 12 hours and likely longer her Pitocin has been running at 30 milliunits at various points her contractions have been adequate and at various points somewhat less but currently they are adequate. There is blood tinge to the urine as well the patient is fatigued We had a ronnie discussion with the patient and her nurse about the situation I do not see any significant progress over the last 14 hours if there is it has been very small this is well off the labor curve I think at this stage undoubtably she meets the criteria for failure to progress and nonprogressive labor her heart rate is currently category 1 which is reassuring at this stage I recommended section we discussed in depth the risks of C- section section. The patient was counseled to the nature of the procedure including alternatives such as labor. Risks were discussed including bleeding infection injury to bowel bladder ureter vessels and even baby. Deep Vein thrombosis, pulmonary embolus discussed. Breakdown of incision reviewed. Deep vein thrombosis pulmonary embolus hernia and failure of the incision to heal were discussed Patient verbalized understanding of this and was given ample time to ask questions I discussed I feel her risk of infection is significantly elevated with a prolonged labor prolonged rupture of membranes and also elevated BMI this was discussed with the patient. We also discussed the other risks in depth I will give Ancef and azithromycin prophylactically and we will use a maria isabel dressing afterwards I discussed my experience with cesareans discussed the option of continuing labor as well well I do not think this is contraindicated I do not think the chances of vaginal delivery are high at this stage since her has been so little progress the patient spoke with her mother at length and agreed consent was reviewed line by line and was signed we will make arrangements in the near future for section Results & Data Vital Signs (Past 12 Hours) Vital Signs Temp Pulse Resp BP Pulse Ox O2 Del Method 01/24/24 08:54 126 H 100 09/28/23 08:51 120/63 09/28/23 08:49 103 H 100 09/28/23 08:44 102 H 100 09/28/23 08:39 89 100 09/28/23 08:36 100 H 114/59 L 09/28/23 08:34 90 100 09/28/23 08:29 99 H 100 09/28/23 08:27 99 H 85 L 09/28/23 08:24 115 H 100 09/28/23 08:20 96 H 132/79 09/28/23 08:19 114 H 97 09/28/23 08:18 97 H 90 09/28/23 08:14 95 H 100 09/28/23 08:09 92 H 100 09/28/23 08:05 98 H 139/84 09/28/23 08:04 93 H 100 09/28/23 08:00 110 H 90 09/28/23 07:59 108 H 100 09/28/23 07:54 95 H 100 09/28/23 07:51 92 H 140/76 09/28/23 07:49 114 H 99 09/28/23 07:45 102 H 90 09/28/23 07:44 102 H 96 09/28/23 07:39 84 100 09/28/23 07:38 96 H 91 09/28/23 07:37 93 H 135/71 09/28/23 07:33 98 09/28/23 07:33 97 H 09/28/23 07:33 102 H 91 09/28/23 07:32 89 148/71 H 09/28/23 07:30 20 09/28/23 07:30 98.1 F 20 09/28/23 07:28 116 H 100 09/28/23 07:23 97 H 99 09/28/23 07:18 108 H 97 09/28/23 07:13 114 H 100 09/28/23 07:10 103 H 85 L 09/28/23 07:08 102 H 97 09/28/23 07:07 87 161/83 H 09/28/23 07:03 83 100 09/28/23 07:00 18 09/28/23 07:00 18 09/28/23 06:58 76 100 09/28/23 06:53 83 100 09/28/23 06:52 85 140/76 09/28/23 06:48 89 100 09/28/23 06:45 98.6 F 09/28/23 06:43 83 96 09/28/23 06:38 88 99 09/28/23 06:37 82 154/75 H 09/28/23 06:33 83 98 09/28/23 06:30 16 09/28/23 06:30 16 09/28/23 06:28 81 99 09/28/23 06:23 85 99 09/28/23 06:21 85 140/71 09/28/23 06:18 86 98 09/28/23 06:13 82 100 09/28/23 06:08 84 100 09/28/23 06:06 86 147/76 H 09/28/23 06:03 81 99 09/28/23 06:00 16 09/28/23 06:00 16 09/28/23 05:58 80 100 09/28/23 05:53 81 100 09/28/23 05:51 86 149/76 H 09/28/23 05:48 80 99 09/28/23 05:43 83 100 09/28/23 05:38 84 100 09/28/23 05:37 85 150/72 H 09/28/23 05:33 81 100 09/28/23 05:30 18 09/28/23 05:30 18 09/28/23 05:28 86 100 09/28/23 05:23 99 H 90 09/28/23 05:22 83 09/28/23 05:22 88 131/68 88 L 09/28/23 05:17 96 H 98 09/28/23 05:12 95 H 100 09/28/23 05:11 91 H 89 L 09/28/23 05:07 108 H 98 09/28/23 05:03 88 92 09/28/23 05:02 93 H 100 09/28/23 05:00 18 09/28/23 05:00 18 09/28/23 04:57 91 H 97 09/28/23 04:52 75 97 09/28/23 04:51 78 138/63 09/28/23 04:47 78 98 09/28/23 04:42 83 98 09/28/23 04:37 84 128/66 100 09/28/23 04:32 78 99 09/28/23 04:30 18 09/28/23 04:30 98.2 F 18 09/28/23 04:27 83 100 09/28/23 04:22 100 09/28/23 04:22 85 09/28/23 04:22 90 136/65 09/28/23 04:17 78 100 09/28/23 04:12 92 H 99 09/28/23 04:07 85 142/70 H 99 09/28/23 04:02 80 100 09/28/23 04:00 16 09/28/23 04:00 16 09/28/23 03:57 82 100 09/28/23 03:52 100 09/28/23 03:52 87 09/28/23 03:52 85 123/58 L 09/28/23 03:47 80 100 09/28/23 03:42 79 98 09/28/23 03:37 100 09/28/23 03:37 81 09/28/23 03:37 82 121/61 09/28/23 03:32 82 100 09/28/23 03:30 16 09/28/23 03:30 16 09/28/23 03:27 81 99 09/28/23 03:22 80 100 09/28/23 03:21 83 131/62 09/28/23 03:17 83 99 09/28/23 03:12 78 99 09/28/23 03:07 78 100 09/28/23 03:05 85 127/64 09/28/23 03:02 79 100 09/28/23 03:00 16 09/28/23 03:00 16 09/28/23 02:57 79 100 09/28/23 02:52 86 100 09/28/23 02:51 81 142/63 H 09/28/23 02:47 94 09/28/23 02:47 108 H 09/28/23 02:47 105 H 94 09/28/23 02:42 92 H 100 09/28/23 02:37 86 100 09/28/23 02:35 88 138/67 09/28/23 02:32 90 100 09/28/23 02:31 98.2 F 93 H 89 L 09/28/23 02:30 18 09/28/23 02:30 18 09/28/23 02:27 99 H 98 09/28/23 02:23 81 93 09/28/23 02:22 80 99 09/28/23 02:17 77 99 09/28/23 02:14 78 168/93 H 09/28/23 02:12 79 98 09/28/23 02:07 78 97 09/28/23 02:02 77 99 09/28/23 02:01 83 174/88 H 09/28/23 02:00 16 09/28/23 02:00 16 09/28/23 01:57 81 99 09/28/23 01:52 83 99 09/28/23 01:47 77 99 09/28/23 01:45 75 148/90 H 09/28/23 01:42 75 100 09/28/23 01:37 72 99 09/28/23 01:32 80 100 09/28/23 01:30 18 09/28/23 01:30 18 09/28/23 01:29 93 H 164/93 H 09/28/23 01:27 89 100 09/28/23 01:23 81 91 09/28/23 01:22 79 95 09/28/23 01:17 73 98 09/28/23 01:14 78 164/87 H 09/28/23 01:12 74 99 09/28/23 01:07 73 98 09/28/23 01:02 75 99 09/28/23 01:00 79 16 163/90 H 09/28/23 00:57 75 100 09/28/23 00:52 73 100 09/28/23 00:47 70 100 09/28/23 00:45 75 162/97 H 09/28/23 00:42 78 100 09/28/23 00:39 18 09/28/23 00:39 98.4 F 18 09/28/23 00:37 96 H 100 09/28/23 00:33 93 H 93 09/28/23 00:32 90 100 09/28/23 00:29 85 145/71 H 09/28/23 00:27 79 97 09/28/23 00:22 77 99 09/28/23 00:17 72 99 09/28/23 00:15 79 146/73 H 09/28/23 00:12 74 99 09/28/23 00:07 80 100 09/28/23 00:02 73 99 09/28/23 00:00 78 16 159/74 H 09/27/23 23:57 75 99 09/27/23 23:52 77 99 09/27/23 23:47 78 98 09/27/23 23:44 77 145/79 H 09/27/23 23:42 83 100 09/27/23 23:37 75 99 09/27/23 23:32 82 100 09/27/23 23:30 16 09/27/23 23:30 16 09/27/23 23:29 71 147/79 H 09/27/23 23:27 73 99 09/27/23 23:22 77 100 09/27/23 23:17 75 100 09/27/23 23:16 81 149/85 H 09/27/23 23:14 75 90 09/27/23 23:12 75 100 09/27/23 23:10 Room Air 09/27/23 23:07 70 100 09/27/23 23:02 92 H 97 09/27/23 23:00 20 09/27/23 23:00 98.4 F 20 09/27/23 22:59 79 155/78 H 09/27/23 22:57 82 100 09/27/23 22:52 83 100 09/27/23 22:47 85 99 09/27/23 22:45 83 144/85 H 09/27/23 22:43 92 H 91 09/27/23 22:42 92 H 97 09/27/23 22:37 83 98 09/27/23 22:32 73 99 09/27/23 22:29 78 169/84 H 09/27/23 22:27 79 100 09/27/23 22:22 73 99 09/27/23 22:17 80 100 09/27/23 22:14 75 157/90 H 09/27/23 22:12 80 100 09/27/23 22:07 74 100 09/27/23 22:02 73 99 09/27/23 21:59 75 159/90 H 09/27/23 21:57 72 100 09/27/23 21:52 68 100 09/27/23 21:47 71 100 09/27/23 21:45 71 158/95 H 09/27/23 21:42 75 100 09/27/23 21:37 75 99 09/27/23 21:32 90 100 09/27/23 21:31 88 91 09/27/23 21:27 72 100 09/27/23 21:22 73 100 09/27/23 21:17 74 99 09/27/23 21:14 75 135/81 09/27/23 21:12 75 99 09/27/23 21:07 73 100 09/27/23 21:02 71 100 09/27/23 20:59 70 139/77 PG Care Time/CCT Total # of Minutes Spent Total Time Spent with Patient: Total time spent is greater than 50% in coordination of care (as documented) at patient's floor/unit and/or counseling patient: Coding Level of Care Code None
[2023-09-28] MEDS ORDERED: CITRIC ACID/SODIUM CITRATE 15 ML UDC ONE (09:03)
[2023-09-28] MEDS: FAMOTIDINE 20 MG TAB PO SCH (09:09)
[2023-09-28] MEDS ORDERED: LIDOCAINE 2%/EPINEPHRINE 1:200,000 20 ML PF ONE (09:10)
[2023-09-28] MEDS ORDERED: ONDANSETRON INJ 2 MG/ML 2 ML VIAL ONE (09:10)
[2023-09-28] MEDS ORDERED: OXYTOCIN 10 UNITS/ML VIAL ONE (09:10)
[2023-09-28] MEDS ORDERED: MoRPHine SULFATE PF 1 MG/ML 10 ML AMP/VIAL ONE (09:11)
[2023-09-28] MEDS ORDERED: PHENYLEPHRINE 100MCG/ML 10ML SYR IV ONE (09:13)
[2023-09-28] MEDS ORDERED: METHYLERGONOVINE MALEATE 0.2 MG/ML AMP ONE (09:55)
[2023-09-28] MEDS ORDERED: MIDAZOLAM HCL 1 MG/ML 2ML VIAL ONE (10:01)
[2023-09-28] MEDS ORDERED: ePHEDrine sulfate 50 MG/ML AMP IV PRN (10:18)
[2023-09-28] MEDS ORDERED: NALBUPHINE HCL 5 MG in SYRINGE 0 ML IV PRN (10:18)
[2023-09-28] MEDS ORDERED: HYDROmorphone INJ 0.5 MG/0.5 ML SYR IV PRN (10:18)
[2023-09-28] MEDS ORDERED: NALOXONE HCL 0.08 MG in SYRINGE 1.8 ML IV PRN (10:18)
[2023-09-28] MEDS ORDERED: MoRPHine SULFATE PF 1 MG/ML 10 ML AMP/VIAL EPI ONE (10:18)
[2023-09-28] MEDS ORDERED: NALOXONE HCL 0.4 MG/1 ML VIAL/CARP IV PRN (10:18)
[2023-09-28] MEDS ORDERED: LACTATED RINGER'S 500 ML IV PRN (10:18)
[2023-09-28] MEDS ORDERED: PROMETHAZINE HCL 6.25 MG in SODIUM CHLORIDE 0.9% 50 ML IV PRN (10:18)
[2023-09-28] MEDS ORDERED: NALOXONE HCL 1 MG in SODIUM CHLORIDE 0.9% 1,000 ML IV PRN (10:18)
[2023-09-28] MEDS ORDERED: diphenhydrAMINE 50 MG/ML VIAL IV PRN (10:18)
[2023-09-28] MEDS ORDERED: NO NARCOTICS OR SEDATIVES SCH (10:30)
[2023-09-28] MEDS ORDERED: SODIUM CHLORIDE 0.9% 1,000 ML IV SCH (10:30)
[2023-09-28] MEDS ORDERED: DC INTRASPINAL MORPHINE SCH (10:30)
[2023-09-28 10:31] LABS: Base Excess Cord Arterial Bld 0.5 mEq/L (-9-1.8); CO2 Cord Arterial Blood 63 mmHg (39.1-73.5); HCO3 Cord Arterial Blood 29 mmol/L (19.7-28.5); Oxygen Sat Cord Arterial Blood < 60.0 % (<60); PO2 Cord Arterial Blood < 20 mmHg (4.1-31.7); pH Cord Arterial Blood 7.27 (7.1-7.38)
[2023-09-28 10:33] LABS: Base Excess Cord Venous Blood -0.6 mEq/L (-7.7-1.9); Cord Venous Blood HCO3 25 mmol/L (18.4-26.8); Cord Venous Blood PCO2 46 mmHg (30.4-57.2); Cord Venous Blood PO2 29 mmHg (14.1-43.3); Cord Venous Blood pH 7.35 (7.20-7.44); O2 Saturation Cord Venous Bld 62.7 % (<68)
--- NOTE | 2023-09-28 10:33 | Operative Report ---
PG Post Operative Report Pre & Post Diagnosis Operation Date: 09/28/23 10:00 Pre-Op Diagnosis: 1. Gestational Hypertension 2. Failure to Progress Post-Op Diagnosis: same I identified the patient and participated in the time-out.: Yes Procedure Operation Date: 09/28/23 10:00 Actual Procedures p Section in LD for live male at 0950(Bilateral) - Kristen Sorto MD, FACOG Surgeon Kristen Sorto MD, FACOG Contract Negotiation Manager Dr. Calabrese Estimated Blood Loss 550 Findings Consistent with Post-Op Diagnosis Specimens Cord gases cord blood Description of Procedure Regional anesthetic had been given by anesthesia patient was prepped and draped with a leftward tilt preoperative antibiotics had been given in appropriate timing by anesthesiology. Once the prep was allowed to fully dry timeout was performed. Pickups with teeth were used to test the incision area was found to be adequate for incision as the patient did not feel sharp pain. Note we did use the pannus retraction system to expose the abdomen the site for incision was above the fold in the belly low transverse Scalpel was used to make a Pfannenstiel incision on the lower abdomen. We then cut through the subcutaneous fat down to the level of the anterior rectus sheath fascia this was cut in the midline and then extended laterally with the curved Calvo scissors. At this stage we then placed 2 Luis clamps on the anterior aspect of the fascia. Using the curved Calvo's we are able to dissect the fascia superiorly away from the rectus muscles. Care was taken to maintain hemostasis. Luis clamps were then placed to the inferior aspect of the anterior sheath of the fascia. Fascia was then dissected away from the rectus muscles inferiorly towards the pubic bone. A Luis was then placed in the midline both inferiorly and superiorly. This was to allow exposure by retraction rectus muscles were in the midline with were then able to cut through the peritoneum and then enter the peritoneal cavity. Opening was enlarged to allow exposure of the peritoneal cavity both superiorly and inferiorly. Once adequate space was obtained a bladder retractor was placed to expose the lower segment Metzenbaums were used to dissect the bladder flap inferiorly away from the uterus. This was done sharply bladder retractor was then repositioned to expose the lower segment of the uterus Fresh scalpel was used to make a low transverse incision on the uterus. Uterus was then entered bluntly with the operators finger, membranes ruptured and the opening was enlarged using the operators fingers bluntly pulling superiorly and inferiorly to allow exposure. Baby was delivered by first flexion of the head elevation of the head out of the pelvis and then pressure by the loan assistant on the maternal abdomen. Baby's head was then delivered mouth and then nares were suctioned and then using gentle traction the baby was fully delivered. Live vigorous infant. Fluid was clear cord clamped and cut cord gases obtained cord blood obtained baby handed to pediatrics. Placenta removed was removed with traction we ensure the entire placenta was removed with a moist lap sponge into the uterus. Baby was in occiput posterior position there was a loose body cord fluid was clear adnexa were inspected these were normal as was the uterus Uterus was then exteriorized. IV Pitocin had been started by anesthesia tone improved there were no extensions the uterus was then closed using 0 Monocryl in a 2 layer closure the first layer closed in a running locked fashion from left to right and then a second closure from left to right in a running nonlocked fashion. At this stage hemostasis was excellent. Uterus was placed back in the peritoneal cavity with suction irrigation out and inspection of the uterus at this stage revealed excellent hemostasis Retractors were removed urine color was clear at this stage of the case we inspected the rectus muscles they were hemostatic fascia was closed with 0 Vicryl subcutaneous fat was irrigated and closed with 3-0 Vicryl skin closed with 4-0 subcuticular Monocryl Cuate dressing system applied I attest to the content of the Intraoperative Record and any orders documented therein. Any exceptions are noted below. OB Procedure Charges 95381
--- NOTE | 2023-09-28 10:48 | Anesthesia Procedure Note ---
Date of Service September 28, 2023 Anesthesia Post Epidural Note Vital Signs Vital Signs: Temp Pulse Resp BP Pulse Ox O2 Del Method 36.7 C 96 H 20 123/58 L 98 Room Air 09/28/23 07:30 09/28/23 10:45 09/28/23 07:30 09/28/23 10:36 09/28/23 10:45 09/27/23 23:10 Pain Intensity Bilateral Abdomen: Pain Intensity: 0 Notes Mental Status: alert / awake / arousable and participated in evaluation Patient Amnestic to Procedure: No Nausea / Vomiting: adequately controlled Pain: adequately controlled Airway Patency, RR, SpO2: stable & adequate BP & HR: stable & adequate Hydration State: stable & adequate Neuraxial Anesthesia: was administered and sensory block is resolving Anesthetic Complications: no major complications apparent and Pt Satisfied with anesthetic care Epidural: Removed without complications
--- NOTE | 2023-09-28 10:49 | Anesthesiology Progress Note ---
Date of Service September 28, 2023 Anesthesia Post Procedure Vital Signs Vital Signs: Temp Pulse Resp BP Pulse Ox O2 Del Method 09/28/23 10:45 96 H 98 09/28/23 10:40 89 100 09/28/23 10:39 101 H 92 09/28/23 10:36 100 H 123/58 L 09/28/23 10:35 104 H 100 09/28/23 09:24 105 H 99 09/28/23 09:19 122 H 99 09/28/23 09:15 115 H 92 09/28/23 09:14 114 H 99 09/28/23 09:09 115 H 86 L 09/28/23 09:05 103 H 143/63 H 09/28/23 09:04 100 H 100 09/28/23 08:59 110 H 100 09/28/23 08:54 126 H 100 09/28/23 08:51 120/63 09/28/23 08:49 103 H 100 09/28/23 08:44 102 H 100 09/28/23 08:39 89 100 09/28/23 08:36 100 H 114/59 L 09/28/23 08:34 90 100 09/28/23 08:29 99 H 100 09/28/23 08:27 99 H 85 L 09/28/23 08:24 115 H 100 09/28/23 08:20 96 H 132/79 09/28/23 08:19 114 H 97 09/28/23 08:18 97 H 90 09/28/23 08:14 95 H 100 09/28/23 08:09 92 H 100 09/28/23 08:05 98 H 139/84 09/28/23 08:04 93 H 100 09/28/23 08:00 110 H 90 09/28/23 07:59 108 H 100 09/28/23 07:54 95 H 100 09/28/23 07:51 92 H 140/76 09/28/23 07:49 114 H 99 09/28/23 07:45 102 H 90 09/28/23 07:44 102 H 96 09/28/23 07:39 84 100 09/28/23 07:38 96 H 91 09/28/23 07:37 93 H 135/71 09/28/23 07:33 98 09/28/23 07:33 97 H 09/28/23 07:33 102 H 91 09/28/23 07:32 89 148/71 H 09/28/23 07:30 20 09/28/23 07:30 36.7 C 20 09/28/23 07:28 116 H 100 09/28/23 07:23 97 H 99 09/28/23 07:18 108 H 97 09/28/23 07:13 114 H 100 09/28/23 07:10 103 H 85 L 09/28/23 07:08 102 H 97 09/28/23 07:07 87 161/83 H 09/28/23 07:03 83 100 09/28/23 07:00 18 09/28/23 07:00 18 09/28/23 06:58 76 100 09/28/23 06:53 83 100 09/28/23 06:52 85 140/76 09/28/23 06:48 89 100 09/28/23 06:45 37.0 C 09/28/23 06:43 83 96 09/28/23 06:38 88 99 09/28/23 06:37 82 154/75 H 09/28/23 06:33 83 98 09/28/23 06:30 16 09/28/23 06:30 16 09/28/23 06:28 81 99 09/28/23 06:23 85 99 09/28/23 06:21 85 140/71 09/28/23 06:18 86 98 09/28/23 06:13 82 100 09/28/23 06:08 84 100 09/28/23 06:06 86 147/76 H 09/28/23 06:03 81 99 09/28/23 06:00 16 09/28/23 06:00 16 09/28/23 05:58 80 100 09/28/23 05:53 81 100 09/28/23 05:51 86 149/76 H 09/28/23 05:48 80 99 09/28/23 05:43 83 100 09/28/23 05:38 84 100 09/28/23 05:37 85 150/72 H 09/28/23 05:33 81 100 09/28/23 05:30 18 09/28/23 05:30 18 09/28/23 05:28 86 100 09/28/23 05:23 99 H 90 09/28/23 05:22 83 09/28/23 05:22 88 131/68 88 L 09/28/23 05:17 96 H 98 09/28/23 05:12 95 H 100 09/28/23 05:11 91 H 89 L 09/28/23 05:07 108 H 98 09/28/23 05:03 88 92 09/28/23 05:02 93 H 100 09/28/23 05:00 18 09/28/23 05:00 18 09/28/23 04:57 91 H 97 09/28/23 04:52 75 97 09/28/23 04:51 78 138/63 09/28/23 04:47 78 98 09/28/23 04:42 83 98 09/28/23 04:37 84 128/66 100 09/28/23 04:32 78 99 09/28/23 04:30 18 09/28/23 04:30 36.8 C 18 09/28/23 04:27 83 100 09/28/23 04:22 100 09/28/23 04:22 85 09/28/23 04:22 90 136/65 09/28/23 04:17 78 100 09/28/23 04:12 92 H 99 09/28/23 04:07 85 142/70 H 99 09/28/23 04:02 80 100 09/28/23 04:00 16 09/28/23 04:00 16 09/28/23 03:57 82 100 09/28/23 03:52 100 09/28/23 03:52 87 09/28/23 03:52 85 123/58 L 09/28/23 03:47 80 100 09/28/23 03:42 79 98 09/28/23 03:37 100 09/28/23 03:37 81 09/28/23 03:37 82 121/61 09/28/23 03:32 82 100 09/28/23 03:30 16 09/28/23 03:30 16 09/28/23 03:27 81 99 09/28/23 03:22 80 100 09/28/23 03:21 83 131/62 09/28/23 03:17 83 99 09/28/23 03:12 78 99 09/28/23 03:07 78 100 09/28/23 03:05 85 127/64 09/28/23 03:02 79 100 09/28/23 03:00 16 09/28/23 03:00 16 09/28/23 02:57 79 100 09/28/23 02:52 86 100 09/28/23 02:51 81 142/63 H 09/28/23 02:47 94 09/28/23 02:47 108 H 09/28/23 02:47 105 H 94 09/28/23 02:42 92 H 100 09/28/23 02:37 86 100 09/28/23 02:35 88 138/67 09/28/23 02:32 90 100 09/28/23 02:31 36.8 C 93 H 89 L 09/28/23 02:30 18 09/28/23 02:30 18 09/28/23 02:27 99 H 98 09/28/23 02:23 81 93 09/28/23 02:22 80 99 09/28/23 02:17 77 99 09/28/23 02:14 78 168/93 H 09/28/23 02:12 79 98 09/28/23 02:07 78 97 09/28/23 02:02 77 99 09/28/23 02:01 83 174/88 H 09/28/23 02:00 16 09/28/23 02:00 16 09/28/23 01:57 81 99 09/28/23 01:52 83 99 09/28/23 01:47 77 99 09/28/23 01:45 75 148/90 H 09/28/23 01:42 75 100 09/28/23 01:37 72 99 09/28/23 01:32 80 100 09/28/23 01:30 18 09/28/23 01:30 18 09/28/23 01:29 93 H 164/93 H 09/28/23 01:27 89 100 09/28/23 01:23 81 91 09/28/23 01:22 79 95 09/28/23 01:17 73 98 09/28/23 01:14 78 164/87 H 09/28/23 01:12 74 99 09/28/23 01:07 73 98 09/28/23 01:02 75 99 09/28/23 01:00 79 16 163/90 H 09/28/23 00:57 75 100 09/28/23 00:52 73 100 09/28/23 00:47 70 100 09/28/23 00:45 75 162/97 H 09/28/23 00:42 78 100 09/28/23 00:39 18 09/28/23 00:39 36.9 C 18 09/28/23 00:37 96 H 100 09/28/23 00:33 93 H 93 09/28/23 00:32 90 100 09/28/23 00:29 85 145/71 H 09/28/23 00:27 79 97 09/28/23 00:22 77 99 09/28/23 00:17 72 99 09/28/23 00:15 79 146/73 H 09/28/23 00:12 74 99 09/28/23 00:07 80 100 09/28/23 00:02 73 99 09/28/23 00:00 78 16 159/74 H 09/27/23 23:57 75 99 09/27/23 23:52 77 99 09/27/23 23:47 78 98 09/27/23 23:44 77 145/79 H 09/27/23 23:42 83 100 09/27/23 23:37 75 99 09/27/23 23:32 82 100 09/27/23 23:30 16 09/27/23 23:30 16 09/27/23 23:29 71 147/79 H 09/27/23 23:27 73 99 09/27/23 23:22 77 100 09/27/23 23:17 75 100 09/27/23 23:16 81 149/85 H 09/27/23 23:14 75 90 09/27/23 23:12 75 100 09/27/23 23:10 Room Air 09/27/23 23:07 70 100 09/27/23 23:02 92 H 97 09/27/23 23:00 20 09/27/23 23:00 36.9 C 20 09/27/23 22:59 79 155/78 H 09/27/23 22:57 82 100 09/27/23 22:52 83 100 09/27/23 22:47 85 99 09/27/23 22:45 83 144/85 H 09/27/23 22:43 92 H 91 09/27/23 22:42 92 H 97 09/27/23 22:37 83 98 09/27/23 22:32 73 99 09/27/23 22:29 78 169/84 H 09/27/23 22:27 79 100 09/27/23 22:22 73 99 09/27/23 22:17 80 100 09/27/23 22:14 75 157/90 H 09/27/23 22:12 80 100 09/27/23 22:07 74 100 09/27/23 22:02 73 99 09/27/23 21:59 75 159/90 H 09/27/23 21:57 72 100 09/27/23 21:52 68 100 09/27/23 21:47 71 100 09/27/23 21:45 71 158/95 H 09/27/23 21:42 75 100 09/27/23 21:37 75 99 09/27/23 21:32 90 100 09/27/23 21:31 88 91 09/27/23 21:27 72 100 09/27/23 21:22 73 100 09/27/23 21:17 74 99 09/27/23 21:14 75 135/81 09/27/23 21:12 75 99 09/27/23 21:07 73 100 09/27/23 21:02 71 100 09/27/23 20:59 70 139/77 09/27/23 20:57 73 100 09/27/23 20:52 71 100 09/27/23 20:47 75 100 09/27/23 20:44 72 138/68 09/27/23 20:42 74 99 09/27/23 20:37 75 98 09/27/23 20:32 70 99 09/27/23 20:29 82 136/73 09/27/23 20:27 75 100 09/27/23 20:22 78 100 09/27/23 20:20 77 90 09/27/23 20:17 81 100 09/27/23 20:14 68 147/74 H 09/27/23 20:12 79 99 09/27/23 20:07 74 100 09/27/23 20:02 71 100 09/27/23 20:00 36.7 C 69 20 127/70 09/27/23 19:57 84 100 09/27/23 19:52 78 100 09/27/23 19:48 91 H 90 09/27/23 19:47 94 H 100 09/27/23 19:44 70 150/84 H 09/27/23 19:42 73 100 09/27/23 19:37 84 100 09/27/23 19:32 77 99 09/27/23 19:29 78 163/93 H 09/27/23 19:27 76 100 09/27/23 19:25 87 93 09/27/23 19:22 94 H 99 09/27/23 19:18 85 93 09/27/23 19:17 75 100 09/27/23 19:15 77 161/91 H 09/27/23 19:12 99 09/27/23 19:12 74 09/27/23 19:12 81 93 09/27/23 19:07 71 100 09/27/23 19:02 73 100 09/27/23 19:01 71 142/96 H 09/27/23 18:57 81 100 09/27/23 18:52 84 99 09/27/23 18:47 73 100 09/27/23 18:44 76 159/98 H 09/27/23 18:42 77 100 09/27/23 18:37 79 100 09/27/23 18:32 72 100 09/27/23 18:31 81 93 09/27/23 18:30 88 20 144/89 H 09/27/23 18:27 81 100 09/27/23 18:22 70 99 09/27/23 18:17 73 100 09/27/23 18:14 78 158/90 H 09/27/23 18:12 84 98 09/27/23 18:07 72 100 09/27/23 18:02 67 99 09/27/23 17:59 75 158/85 H 09/27/23 17:57 67 100 09/27/23 17:52 72 100 09/27/23 17:47 74 100 09/27/23 17:46 63 172/86 H 09/27/23 17:42 66 100 09/27/23 17:37 69 99 09/27/23 17:32 75 100 09/27/23 17:31 68 158/89 H 09/27/23 17:27 71 100 09/27/23 17:22 68 100 09/27/23 17:17 69 100 09/27/23 17:14 64 156/86 H 09/27/23 17:12 66 100 09/27/23 17:07 66 100 09/27/23 17:02 68 100 09/27/23 16:59 36.8 C 67 18 159/89 H 09/27/23 16:57 64 100 09/27/23 16:54 71 91 09/27/23 16:52 67 100 09/27/23 16:47 67 100 09/27/23 16:45 75 163/88 H 91 09/27/23 16:42 75 100 09/27/23 16:38 77 91 09/27/23 16:37 76 98 09/27/23 16:32 69 99 09/27/23 16:29 60 144/84 H 09/27/23 16:27 64 100 09/27/23 16:22 62 100 09/27/23 16:17 71 100 09/27/23 16:16 90 90 09/27/23 16:12 73 96 09/27/23 16:10 87 92 09/27/23 16:07 70 99 09/27/23 16:02 72 100 09/27/23 16:01 75 20 137/90 09/27/23 15:57 71 98 09/27/23 15:52 72 100 09/27/23 15:47 69 96 09/27/23 15:46 70 94 09/27/23 15:44 77 139/80 09/27/23 15:42 82 98 09/27/23 15:37 65 100 09/27/23 15:32 69 100 09/27/23 15:30 72 136/82 09/27/23 15:27 66 100 09/27/23 15:22 68 99 09/27/23 15:17 68 100 09/27/23 15:16 36.8 C 68 20 136/79 09/27/23 15:12 63 100 09/27/23 15:07 67 99 09/27/23 15:02 65 99 09/27/23 15:01 68 152/81 H 09/27/23 14:57 67 100 09/27/23 14:52 68 99 09/27/23 14:47 67 100 09/27/23 14:45 62 144/85 H 09/27/23 14:42 68 100 09/27/23 14:39 81 93 09/27/23 14:37 85 99 09/27/23 14:32 67 100 09/27/23 14:30 65 143/83 H 09/27/23 14:27 69 100 09/27/23 14:22 69 100 09/27/23 14:17 66 100 09/27/23 14:14 71 20 143/86 H 09/27/23 14:12 69 99 09/27/23 14:07 78 100 09/27/23 14:02 97 09/27/23 14:02 83 09/27/23 14:02 74 89 L 09/27/23 14:00 71 156/93 H 09/27/23 13:57 68 100 09/27/23 13:52 66 98 09/27/23 13:50 69 89 L 09/27/23 13:47 66 98 09/27/23 13:44 73 156/88 H 09/27/23 13:42 74 99 09/27/23 13:37 69 98 09/27/23 13:32 68 99 09/27/23 13:29 71 155/86 H 09/27/23 13:27 70 96 09/27/23 13:22 72 96 09/27/23 13:17 72 96 09/27/23 13:16 36.9 C 77 20 158/80 H 09/27/23 13:12 80 95 09/27/23 13:07 76 96 09/27/23 13:02 74 95 09/27/23 12:59 77 94 09/27/23 12:57 74 97 09/27/23 12:56 76 159/77 H 09/27/23 12:52 97 09/27/23 12:52 73 09/27/23 12:52 78 159/75 H 09/27/23 12:47 76 96 09/27/23 12:46 71 150/81 H 09/27/23 12:42 73 97 09/27/23 12:41 74 146/76 H 09/27/23 12:37 97 09/27/23 12:37 75 09/27/23 12:37 76 145/73 H 09/27/23 12:32 89 97 09/27/23 12:30 82 147/85 H 09/27/23 12:27 81 146/85 H 97 09/27/23 12:26 84 142/83 H 09/27/23 12:24 94 H 140/78 09/27/23 12:22 100 09/27/23 12:22 87 09/27/23 12:22 88 157/90 H 09/27/23 12:19 81 20 153/87 H 09/27/23 12:17 81 98 09/27/23 12:13 88 86 L 09/27/23 12:12 85 96 09/27/23 12:07 88 99 09/27/23 12:02 90 89 L 09/27/23 12:01 97 H 94 09/27/23 11:57 95 H 100 09/27/23 11:55 106 H 141/95 H 09/27/23 11:52 107 H 97 09/27/23 11:47 100 09/27/23 11:47 115 H 09/27/23 11:47 115 H 93 09/27/23 11:42 98 09/27/23 11:42 79 09/27/23 11:42 221 H 78 L 09/27/23 11:18 84 20 162/97 H Pain Intensity Bilateral Abdomen: Pain Intensity: 0 Transfer of Care Handoff Completed per policy Notes Mental Status: alert / awake / arousable and participated in evaluation Patient Amnestic to Procedure: Yes Nausea / Vomiting: adequately controlled Pain: adequately controlled Airway Patency, RR, SpO2: stable & adequate BP & HR: stable & adequate Hydration State: stable & adequate Neuraxial Anesthesia: was administered and sensory block is resolving Anesthetic Complications: no major complications apparent and Pt Satisfied with anesthetic care
[2023-09-28] MEDS ORDERED: MAGNESIUM HYDROXIDE SUSP 30 ML UDC PO PRN (11:10)
[2023-09-28] MEDS ORDERED: HYDROCORTISONE ACETATE 25 MG SUPP PR PRN (11:10)
[2023-09-28] MEDS ORDERED: DIPHTHER/TETAN/PERTUS Vaccine (Tdap, Adol/Adult) 0.5mL IM ONE (11:10)
[2023-09-28] MEDS ORDERED: BENZOCAINE 20% SPRY 85 APPLN/85 GM CAN EXT PRN (11:10)
[2023-09-28] MEDS ORDERED: SENNA 8.6 MG TAB PO PRN (11:10)
[2023-09-28] MEDS: OXYTOCIN 20 UNITS/LR 1,002 ML IV SCH ×2 (11:38→20:22)
[2023-09-28] MEDS: ONDANSETRON INJ 2 MG/ML 2 ML VIAL IV PRN ×2 (12:33→17:31)
[2023-09-28] MEDS: SIMETHICONE 80 MG CHEW PO SCH ×3 (13:32→20:24)
[2023-09-28] MEDS ORDERED: ceFAZolin 2000MG 2,000 MG/15 ML SYR IV ONE (17:00)
[2023-09-28] MEDS: DOCUSATE SODIUM 100 MG CAP PO SCH (20:25)
[2023-09-28] MEDS: KETOROLAC 30 MG/ML VIAL IV PRN (20:26)
[2023-09-29] MEDS ORDERED: LACTATED RINGER'S 1,000 ML IV SCH (03:15)
[2023-09-29] MEDS: KETOROLAC 30 MG/ML VIAL IV PRN (04:04)
[2023-09-29] MEDS ORDERED: diphenhydrAMINE Capsule 25 MG CAP PO PRN (04:18)
[2023-09-29] MEDS ORDERED: KETOROLAC 30 MG/ML VIAL IV PRN (04:18)
[2023-09-29] MEDS ORDERED: PROMETHAZINE HCL 25 MG in SODIUM CHLORIDE 0.9% 50 ML IV PRN (04:18)
[2023-09-29] MEDS ORDERED: diphenhydrAMINE 50 MG/ML VIAL IV PRN (04:18)
[2023-09-29] MEDS ORDERED: ONDANSETRON INJ 2 MG/ML 2 ML VIAL IV PRN (04:18)
[2023-09-29] MEDS ORDERED: oxyCODONE/ACETAMINOPHEN 5mg/325mg TAB PO PRN (04:18)
--- NOTE | 2023-09-29 07:19 | Obstetrical Progress Note ---
Date of Service <Marisol Edin DO Nancy - Last Filed: 09/29/23 07:20> September 29, 2023 Assessment & Plan <Marisol Cruz DO - Last Filed: 09/29/23 07:20> (1) care following delivery: Feels well today. Eating well, voiding well, ambulating well. Pain controlled with ketorolac at this time. Will emphasize use of oral meds today and tomorrow to wean off IV use except for breakthrough pain. Routine care; OOB, ambulation, diet progression as tolerated. Anticipate discharge 48-72 hours after delivery, most likely given her complicated delivery earliest would be Tuesday. After discharge will have 6 week follow-up with Dr. Sorto. <Kristen Sorto MD, FACOG - Last Filed: 09/29/23 07:58> (1) care following delivery: Subjective <Marisol Cruz DO - Last Filed: 09/29/23 07:20> Pt is a 27 y/o female who is POD#1 following delivery for obstructed labor/arrest of labor at 38 weeks. Pt was very fatigued this morning and states she is just feeling very tired. She states she has been able to urinate on her own since the ramos was removed. She states her cramps are mild and her bleeding is mild. DUSTIN dressing in place. Her biggest complaint today is that she just feels very fatigued since yesterday. No BM yet but some gas. No questions or further complaints at this time. Constitutional: no fever, no chills or no sweats Respiratory: no dyspnea Cardiovascular: no chest pain or no palpitations Breast: no breast pain Genitourinary (female): no dysuria Neurologic: no headache(s) no changes in vision, no headaches Physical Exam <Marisol Cruz DO - Last Filed: 09/29/23 07:20> General: Alert, oriented. No acute distress. Cardiac: Regular rate and rhythm, no murmurs, rubs, or gallops. Respiratory: Clear to auscultation bilaterally, no wheezes/rales/rhonchi. No increased work of breathing. Symmetrical chest rise. No respiratory distress. Abdomen: Soft, nontender, nondistended. Bowel sounds present. Uterus: Uterine fundus firm, palpable below the umbilicus. DUSTIN dressing in place and sealed appropriately. Lower extremities: No lower extremity edema or swelling. No deep calf pain. Results & Data <Marisol Cruz DO - Last Filed: 09/29/23 07:20> Vital Signs (Past 12 Hours) Vital Signs Temp Pulse Resp BP Pulse Ox O2 Del Method O2 Flow Rate 09/29/23 04:10 16 100 09/29/23 04:10 36.9 C 98 H 16 105/72 100 Room Air 09/29/23 03:00 16 100 09/29/23 02:09 16 100 09/29/23 01:00 16 100 09/29/23 00:03 16 99 09/28/23 23:00 16 96 09/28/23 23:00 36.6 C 83 16 111/73 96 Room Air 09/28/23 22:16 16 96 09/28/23 21:10 16 95 09/28/23 20:12 16 100 09/28/23 20:12 36.7 C 92 H 16 105/71 100 Nasal Cannula 2 Supervising Physician <Kristen Sorto MD, FACOG - Last Filed: 09/29/23 07:58> Co-Signing Physician Notes Resident Physician Supervision Note: I was present with Dr. Cruz during the history and exam. I discussed the case with the resident and agree with the findings and plan as documented in the note. Any exceptions or clarifications are listed here: [None] Documented By: Kristen Sorto MD, FACOG Resident Activity Tracking <Marisol Cruz DO - Last Filed: 09/29/23 07:20> Resident Involvement: Resident Care Provided Care Provided: Adult Hospital Medicine
[2023-09-29] MEDS: DOCUSATE SODIUM 100 MG CAP PO SCH ×2 (08:14→20:00)
[2023-09-29] MEDS: SIMETHICONE 80 MG CHEW PO SCH ×4 (08:14→20:00)
[2023-09-29] MEDS: PRENATAL VITAMIN 1 TAB PO SCH (08:14)
[2023-09-29] MEDS: FERROUS SULFATE 325 MG TAB PO SCH (08:14)
[2023-09-29 10:42] LABS: Basophils # (auto) 0.04 K/uL (0.00-0.20); Basophils % (auto) 0.3 %; Eosinophils # (auto) 0.17 K/uL (0.00-0.50); Eosinophils % (auto) 1.2 %; Hematocrit (blood only) 28.9 % (37.0-47.0); Hemoglobin 9.2 g/dl (12.0-16.0); Immature Granulocytes # (auto) 0.12 K/uL (0.01-0.20); Immature Granulocytes % (auto) 0.8 %; Lymphocytes # (auto) 1.32 K/uL (1.20-3.40); Lymphocytes % (auto) 9.2 %; Mean Corpuscular Hemoglobin 25.7 pg (25.0-34.0); Mean Corpuscular Hgb Conc 31.8 g/dL (32.0-36.0); Mean Corpuscular Volume 80.7 fL (80.0-100.0); Mean Platelet Volume 11.9 fL (9.4-12.4); Monocytes # (auto) 0.52 K/uL (0.11-0.59); Monocytes % (auto) 3.6 %; Neutrophils # (auto) 12.15 K/uL (1.40-6.50); Neutrophils % (auto) 84.9 %; Platelet Count 172 K/uL (130-400); RDW Coefficient of Variation 16.3 % (11.5-14.5); RDW Standard Deviation 47.2 fL (36.4-46.3); Red Blood Count 3.58 M/uL (4.20-5.40); White Blood Count 14.32 K/ul (4.8-10.8)
[2023-09-29] MEDS: CALCIUM CARBONATE 500 MG CHEWABLE TAB PO PRN ×2 (11:31→20:50)
[2023-09-29] MEDS: IBUPROFEN 600 MG TAB PO PRN (14:10)
[2023-09-29] MEDS ORDERED: ONDANSETRON 4 MG OD TAB PO PRN (15:33)
[2023-09-29] MEDS ORDERED: bisacodyL 5 MG TABEC PO SCH (20:00)
[2023-09-30] MEDS: IBUPROFEN 600 MG TAB PO PRN ×3 (02:02→14:02)
--- NOTE | 2023-09-30 05:12 | Obstetrical Progress Note ---
Date of Service September 30, 2023 Assessment & Plan (1) care following delivery: (1) care following delivery: Feels well today. Eating well, voiding well, ambulating well. Pain controlled with Motrin at this time. Plan to continue routine care until anticipated discharge today. After discharge will have 6 week follow-up with Dr. Sorto. Subjective Pt is a 27 y/o female who is POD#2 following delivery for obstructed labor/arrest of labor at 38 weeks. Pt was very fatigued this morning after cluster feeding most of the night. She states she has been urinating without any discomfort. She states her pain is very well controlled with Motrin cramps are mild and her bleeding is mild. DUSTIN dressing in place. No BM yet but some gas. No questions or further complaints at this time. Constitutional: no fever, no chills or no sweats Respiratory: no dyspnea Cardiovascular: no chest pain or no palpitations Breast: no breast pain Genitourinary (female): no dysuria Neurologic: no headache(s) no changes in vision, no headaches Physical Exam General: Alert, oriented. No acute distress. Cardiac: Regular rate and rhythm, no murmurs, rubs, or gallops. Respiratory: Clear to auscultation bilaterally, no wheezes/rales/rhonchi. No increased work of breathing. Symmetrical chest rise. Abdomen: Soft, nontender, nondistended. Bowel sounds present. Uterus: Uterine fundus firm, palpable below the umbilicus. DUSTIN dressing in place and sealed appropriately. Lower extremities: No lower extremity edema or swelling. No deep calf pain. Results & Data Vital Signs (Past 12 Hours) Vital Signs Temp Pulse Resp BP Pulse Ox O2 Del Method 09/30/23 02:03 36.7 C 103 H 18 122/77 95 Room Air 09/29/23 19:45 36.6 C 95 H 18 127/87 100 Room Air
--- NOTE | 2023-09-30 06:35 | Obstetrical Progress Note ---
Date of Service <Marisol Cruz DO - Last Filed: 09/30/23 06:39> September 30, 2023 Assessment & Plan <Marisol Cruz DO - Last Filed: 09/30/23 06:39> (1) care following delivery: Feels well today. Eating well, voiding well, ambulating well. Pain controlled with ibuprofen. Routine care; OOB, ambulation, diet progression as tolerated. Anticipate discharge 48-72 hours after delivery, most likely given her complicated delivery earliest would be today but likely tomorrow. After discharge will have 6 week follow-up with Dr. Sorto. <Gin Calabrese MD, FACOG - Last Filed: 09/30/23 08:10> (1) care following delivery: Subjective <Marisol Cruz DO - Last Filed: 09/30/23 06:39> Pt is a 27 y/o female who is POD#2 following delivery for obstructed labor/arrest of labor at 38 weeks. Today, pt continues to be very fatigued. She states her baby was cluster feeding last night so while he was feeding well, she did not get a lot of sleep overnight. Continues to tolerate oral intake. Voiding appropriately and passing gas. Ambulating some during the day. No acute questions or concerns this morning. Overall feels well, just exhausted this morning. Constitutional: no fever, no chills or no sweats Respiratory: no dyspnea Cardiovascular: no chest pain or no palpitations Breast: no breast pain Genitourinary (female): no dysuria Neurologic: no headache(s) Physical Exam <Marisol Cruz DO - Last Filed: 09/30/23 06:39> General: Alert, oriented. No acute distress. Cardiac: Regular rate and rhythm, no murmurs, rubs, or gallops. Respiratory: Clear to auscultation bilaterally, no wheezes/rales/rhonchi. No increased work of breathing. Symmetrical chest rise. No respiratory distress. Abdomen: Soft, nontender, nondistended. Bowel sounds present. Uterus: Uterine fundus firm, palpable below the umbilicus. DUSTIN dressing in place and sealed appropriately at this time. Lower extremities: No lower extremity edema or swelling. No deep calf pain. Results & Data <Marisol Cruz DO - Last Filed: 09/30/23 06:39> Vital Signs (Past 12 Hours) Vital Signs Temp Pulse Resp BP Pulse Ox O2 Del Method 09/30/23 02:03 36.7 C 103 H 18 122/77 95 Room Air 09/29/23 19:45 36.6 C 95 H 18 127/87 100 Room Air Supervising Physician <Gin Calabrese MD, FACOG - Last Filed: 09/30/23 08:10> Co-Signing Physician Notes Resident Physician Supervision Note: I interviewed and examined the patient. Discussed with Giovanna Kim Dr and agree with findings and plan as documented in the note. Any exceptions or clarifications are listed here: Doing well. Pain better. Had some issues with feeding overnight. Will see how things go through the day. Documented By: Gin Calabrese MD, FACOG Resident Activity Tracking <Marisol Cruz DO - Last Filed: 09/30/23 06:39> Resident Involvement: Resident Care Provided Care Provided: Adult Hospital Medicine
[2023-09-30] MEDS: FERROUS SULFATE 325 MG TAB PO SCH (07:50)
[2023-09-30] MEDS: SIMETHICONE 80 MG CHEW PO SCH ×2 (07:50→14:02)
[2023-09-30] MEDS: DOCUSATE SODIUM 100 MG CAP PO SCH (07:50)
[2023-09-30] MEDS: PRENATAL VITAMIN 1 TAB PO SCH (07:50)
[2023-09-30 08:35] LABS: Hematocrit (blood only) 29.2 % (37.0-47.0)
[2023-09-30] MEDS ORDERED: bisacodyL 10 MG SUPP PR PRN (10:31)
--- NOTE | 2023-10-04 15:22 | Discharge Summary ---
Date of Service October 04, 2023 Admission HPI Per Admitting Provider Pt is a 27 y/o female currently at 37 5/7 WGA with an AURORA of 10/12/23 as determined by LMP who is here for induction. Her was complicated by maternal obesity BMI >40 and elevated BP noted in office today. This was the second elevated BP. She was evaluated on 09/23 in L&D- [facility] labs and BP's were all normal during her L&D observation. Pt states she is feeling okay today and so far she feels the has gone well. She states she has been out of her valacyclovir since but has not noticed any lesions the last few weeks. No questions at this time. No contractions; active movement; no fluid loss; no bloody show. External FHT and external uterine monitors used; Category I tracing; reactive FHT variability. She is GBS negative. Had regular appointments with OB. Labs: Blood Type O Positive 09/23/23 Antibody Screen NEGATIVE 09/23/23 Hemoglobin 12.3 g/dl (12.0-16.0) 09/23/23 Hematocrit 38.0 % (37.0-47.0) 09/23/23 Mean Corpuscular Volume 80.7 fL (80.0-100.0) 09/23/23 Platelet Count 211 K/uL (130-400) 09/23/23 Rubella IgG Antibody Non Immune (Immune) L 03/03/23 Rapid Plasma Reagin Nonreactive (Nonreactive) 03/03/23 Hepatitis B Surface Antigen. NON-REACTIVE (NON-REACTIVE) 03/03/23 Hepatitis C Antibody (EIA) NON-REACTIVE (NON-REACTIVE) 03/03/23 HIV (1&2) Ag and Ab Confirmation NON-REACTIVE (NON-REACTIVE) 03/03/23 Glucose 1 Hour 50 gm Load 141 mg/dl (70-130) H 04/28/23 OB Optional Labs: Chlamydia trachomatis RNA Not Detected (NotDetected) 03/03/23 Neisseria gonorrhoeae RNA Not Detected (NotDetected) 03/03/23 Thyroid Stimulating Hormone (TSH) 1.590 uIu/ml (0.300-4.500) 11/02/18 Discharge Data Procedures Performed Operation Date: 09/28/23 10:00 Actual Procedures p Section in LD for live male infant at 0950(Bilateral) - Kristen Sorto MD, FACOG Hospital Course (1) care following delivery: Feels well today. Eating well, voiding well, ambulating well. Pain controlled with ibuprofen. Routine care; OOB, ambulation, diet progression as tolerated. Anticipate discharge 48-72 hours after delivery, most likely given her complicated delivery earliest would be today but likely tomorrow. After discharge will have 6 week follow-up with Dr. Sorto. Supervising Physician Co-Signing Physician Notes Resident Physician Supervision Note: I interviewed and examined the patient. Discussed with Giovanna Kim Dr and agree with findings and plan as documented in the note. Any exceptions or clarifications are listed here: Doing well. Pain better. Had some issues with feeding overnight. Will see how things go through the day. Documented By: Gni Calabrese MD, FACOG Coding Level of Care Code None Diagnoses care following delivery Z39.2
== END 2023-09-30 14:55 | disposition home or self-care (01) | DRG 788 ==
LOC: OPB 14:25 → 4S1 14:26 → 4E2 09-28 13:21
DX: O99.62 Diseases of the digestive system complicating childbirth; F17.210 Nicotine dependence, cigarettes, uncomplicated; Z37.0 Single live birth; O99.334 Smoking (tobacco) complicating childbirth; O62.0 Primary inadequate contractions; Z3A.38 38 weeks gestation of pregnancy; O13.4 Gestational [pregnancy-induced] hypertension without significant proteinuria, complicating childbirth; K21.9 Gastro-esophageal reflux disease without esophagitis; O99.214 Obesity complicating childbirth; O16.3 Unspecified maternal hypertension, third trimester

== ENCOUNTER 2023-12-02 21:01 | Inpatient (IN) ==
[2023-12-02 21:53] LABS: Basophils # (auto) 0.07 K/uL (0.00-0.20); Basophils % (auto) 0.5 %; Eosinophils # (auto) 0.32 K/uL (0.00-0.50); Eosinophils % (auto) 2.1 %; Hematocrit (blood only) 43.1 % (37.0-47.0); Hemoglobin 12.5 g/dl (12.0-16.0); Immature Granulocytes # (auto) 0.07 K/uL (0.01-0.20); Immature Granulocytes % (auto) 0.5 %; Lymphocytes # (auto) 3.59 K/uL (1.20-3.40); Lymphocytes % (auto) 23.6 %; Mean Corpuscular Volume 72.3 fL (80.0-100.0); Mean Platelet Volume 10.5 fL (9.4-12.4); Monocytes # (auto) 0.81 K/uL (0.11-0.59); Monocytes % (auto) 5.3 %; Neutrophils # (auto) 10.33 K/uL (1.40-6.50); Platelet Count 400 K/uL (130-400); RDW Coefficient of Variation 19.1 % (11.5-14.5); RDW Standard Deviation 45.9 fL (36.4-46.3); Red Blood Count 5.96 M/uL (4.20-5.40); White Blood Count 15.19 K/ul (4.8-10.8)
[2023-12-02 21:59] LABS: Albumin Level 3.9 gm/dl (3.4-5.0); Bilirubin,Total 0.3 mg/dl (0.2-1.0)
[2023-12-02 22:00] LABS: Pregnancy Test, Serum Negative (Negative)
[2023-12-02 22:05] LABS: Creatinine Clr Calc Pharmacy 137.5 ml/min; Est GFR (African American) 108.1 ml/min; Est GFR (Non-African American) 93.2 ml/min
[2023-12-02 22:06] LABS: Albumin Globulin Ratio 1.1 (0.9-2); Globulin 3.5 gm/dl (2.5-4.0); Total Protein 7.4 gm/dl (6.0-8.3)
[2023-12-02] MEDS: ONDANSETRON INJ 2 MG/ML 2 ML VIAL IV STA (22:08)
[2023-12-02] MEDS: OPTIRAY 320 100ml IV ONE (22:17)
--- NOTE | 2023-12-02 23:43 | CT Scan Report ---
Exam(s): CT ABDOMEN + PELVIS With Contrast IV Amt: 93 cc opt 320 EXAM: CT Abdomen and Pelvis With Intravenous Contrast CLINICAL HISTORY: Reason for exam: mid abd pain, c section 2 month ago. TECHNIQUE: Axial computed tomography images of the abdomen and pelvis with intravenous contrast. CTDI is 28.14 mGy and DLP is 1479.25 mGy-cm. Automated exposure control was utilized for the study. A dose lowering technique was utilized adhering to the principles of ALARA. CONTRAST: Patient received 93 cc opt 320 of IV contrast COMPARISON: No relevant prior studies available. FINDINGS: Lung bases: Unremarkable. No mass. No consolidation. ABDOMEN: Liver: Unremarkable. No mass. Gallbladder and bile ducts: Well-distended gallbladder. Small gallstones. No ductal dilation. Pancreas: Unremarkable. No mass. No ductal dilation. Spleen: Unremarkable. No splenomegaly. Adrenals: Unremarkable. No mass. Kidneys and ureters: Unremarkable. No solid mass. No hydronephrosis. Stomach and bowel: No obstruction or ileus. No evidence for diverticulitis. PELVIS: Appendix: No findings to suggest acute appendicitis. Bladder: Unremarkable. No mass. Reproductive: Uterus and ovaries are grossly unremarkable. ABDOMEN and PELVIS: Intraperitoneal space: No free air. No free fluid. Bones/joints: No acute fracture. Soft tissues: Minimal ventral pelvic subcutaneous scarring. No abnormal collection or hernia. Vasculature: Unremarkable. No abdominal aortic aneurysm. Lymph nodes: Unremarkable. No enlarged lymph nodes. IMPRESSION: Well-distended gallbladder with small gallstones. No evidence for common bile duct obstruction. No abnormal pelvic postoperative changes. Electronically signed by: Alonso Griffin M.D. 12/02/23 23:42 PM
[2023-12-02] MEDS: MoRPHine SULFATE 10 MG/ML CARP/VIAL IV PRN (23:46)
--- NOTE | 2023-12-03 00:20 | History & Physical Report ---
Date of Service December 03, 2023 Assessment & Plan (1) Cholelithiasis: Plan: Due to the patient's clinical presentation and findings on imaging we will admit her to the surgical service and proceed as follows: Provide analgesics Provide antiemetics Implement n.p.o. status The treating clinician in the emergency department has initiated cefoxitin and we will continue this medicine Will follow serial labs Will provide IV fluid for hydration The patient's gallbladder is noted to be distended and due to her leukocytosis this raises a concern for cholecystitis. Will therefore check a formal gallbladder ultrasound for further delineation of this Patient be reassessed by Dr. Kennedy the morning of 12/03/2023 and a determination will be made if patient requires cholecystectomy this admission or if this can be performed on a semielective basis It is nowhere the mention that the patient did have hypertension associated with her . If her blood pressure becomes problematic we will enlist the help of the hospitalist with this problem. Use SCDs for DVT prevention, no chemical means until it is ascertained whether or not patient require surgical intervention She will be a level 1 full code History of Present Illness Chief Complaint: Cholelithiasis Primary Care Provider: Ree Nino MD This is a 28-year-old female who is 9 weeks . The patient said that she had a in order to deliver her baby. She notes that this is her only previous abdominal surgery. She notes that over the past 3 days she has been having postprandial pain specifically after her evening meal. She notes that the pain got markedly worse over the past day and she therefore presented to the emergency department. She has had associated nausea and vomiting but denies any fevers, shakes, or chills. She does note that the pain is worse with palpation and is somewhat improved with medicines or administered in the emergency department. I did asked patient if she has been having postprandial pain during or before her which she denies. Concerning other medical issues the patient says she is only treated for asthma. She notes that her asthma is well-controlled and she only uses a rescue inhaler and can oftentimes go weeks without requiring it. Since arrival to the emergency department the patient has had labs and imaging which I independent reviewed. A CT scan of the abdomen pelvis showed the patient's gallbladder was distended with multiple small gallstones. There is no ductal dilatation. Labs included CBC her white blood cell count was elevated 15.11. Hemoglobin and hematocrit were normal. Patient's platelet count was also normal. Chemistry profile showed sodium and potassium along with the BUN and creatinine were normal. There is no elevation of patient's LFTs or lipase. test was negative. At the time of my interview the patient continued to have some right upper quadrant pain but was in no distress. Allergies Allergy/AdvReac Type Severity Reaction Status Date / Time No Known Allergies Allergy Verified 12/02/23 23:52 Home Medications Medication Instructions Recorded Confirmed Type albuterol sulfate 90 mcg/actuation 2 inh inhalation Q4H PRN shortness 05/24/23 12/02/23 Rx aerosol inhaler of breath or wheezing or cough #8.5 grams breast pump #1 ea 09/16/23 11/23/23 Rx benzonatate 200 mg capsule 200 mg PO TID PRN cough #30 caps 11/14/23 12/02/23 Rx desogestrel 0.15 mg-ethinyl 1 tab PO HS 12/02/23 12/02/23 History estradiol 0.03 mg tablet (Apri) nystatin 100,000 unit/gram topical 1 applic topical TID PRN NEEDED 12/02/23 12/02/23 History powder Past Med/Surg History Medical History care following delivery Elevated blood pressure affecting in third trimester, antepartum Obesity affecting Supervision of normal intrauterine in primigravida Migraines Vasovagal syncope with IV sticks and dehydration Suicide risk hx of suicidial thoughts- middle school age History of menorrhagia Common migraine without aura History of dysmenorrhea Tiredness Sleep disturbances night terrors Obesity Lactase deficiency Insomnia Generalized anxiety disorder on buspar prior to Encounter for gynecological examination Depression on meds prior to Asthma allergy induced- has rescue inhaler, used approx "awhile ago" Surgical History [place] teeth extracted 2019 History of tonsillectomy Family History Family/Other Adopted Mother Ovarian cancer Social History Smoking Status: Current every day smoker Tobacco Type: E-cigarettes / Vaping Second Hand Exposure: No; Do You Dip or Chew Tobacco: No; Tobacco Cessation Education Requested by Patient: No Hx Alcohol Use: No Hx Substance Use: No Preferred Language: Bahraini Communication Ability: Effective Visual Impairment: No Limitations Hearing Ability: Normal Willow Worker Required: No Beliefs That Will Affect Care: None marital status: Single marital status details: Harrold (25) [phone] Current Living Situation: Parent Current Living Situation Comment: Lives with both parents current occupational status: employed current occupation: [employer] Other Information That Helps Us Care for You: No Feels Safe at Home: Yes Safety Concerns: Feels Safe At This Time Dental Care, Regularly: Yes Seatbelt Use: always Assistive Devices: None Review of Systems Constitutional: see below Ear, Nose, Mouth, Throat: no ear pain Respiratory: no cough and no dyspnea Cardiovascular: no chest pain Gastrointestinal: as per Subjective / HPI Genitourinary: no dysuria Musculoskeletal: no back pain Integumentary: no rash Neurologic: no localized weakness Physical Exam Constitutional: WD/WN, vitals as above Eyes: No scleral jaundice noted ENMT: Ears: no hearing impairment and no external ear abnormality Mouth: no oropharynx abnormality Neck: trachea midline Respiratory: normal respiratory effort, lungs clear to auscultation Cardiovascular: Rate/Rhythm: regular rate and regular rhythm Gastrointestinal (Abdomen): Abdomen is rotund but soft. It is nondistended. There is no rebound tenderness or guarding but patient did have significant tenderness with palpation in the right upper quadrant. Patient had a well-healed Pfannenstiel incision from her previously noted Musculoskeletal: No calf tenderness Skin: no rashes Neurologic: moves all extremities Psychiatric: A+Ox3, euthymic affect Results & Data Results & Data Vital Signs (Past 12 Hours) Vital Signs Temp Pulse Pulse Resp BP BP Pulse Ox 12/02/23 23:12 83 16 151/108 H 99 12/02/23 22:00 95 H 14 146/89 H 99 12/02/23 21:45 93 H 18 154/97 H 99 12/02/23 21:30 91 H 15 130/86 98 12/02/23 21:30 90 12/02/23 21:26 88 13 130/102 H 100 12/02/23 21:08 36.4 C L 109 H 182/118 H 97 O2 Del Method 12/02/23 23:12 Room Air 12/02/23 22:00 12/02/23 21:45 12/02/23 21:30 12/02/23 21:30 12/02/23 21:26 12/02/23 21:08 Room Air Supervising Physician Co-Signing Physician Notes I have seen and examined this patient. I agree with the above assessment Patient's symptoms have completely resolved. She was able to tolerate a regular, low-fat, nondairy diet this a.m. and is ready for discharge. Should follow-up with me in the office this week. PG Care Time/CCT Total # of Minutes Spent Total Time Spent with Patient: Total time spent is greater than 50% in coordination of care (as documented) at patient's floor/unit and/or counseling patient: Coding Level of Care Code 93022 INT INP/OBS CARE 375MIN Diagnoses Cholelithiasis K80.20
[2023-12-03] MEDS ORDERED: ACETAMINOPHEN 1,000 MG/100 ML VIAL IV PRN (00:21)
[2023-12-03] MEDS ORDERED: ONDANSETRON INJ 2 MG/ML 2 ML VIAL IV PRN (00:21)
[2023-12-03] MEDS ORDERED: MoRPHine SULFATE 4 MG/ML 1 ML CARP\\VIAL IV PRN (00:21)
[2023-12-03] MEDS: KETOROLAC TROMETHAMINE 15 MG/ML VIAL IV ONE (00:30)
[2023-12-03] MEDS: cefOXitin 2,000 MG/60 ML BAG IV STA (00:30)
--- NOTE | 2023-12-03 02:04 | Emergency Department Note ---
Impression & Plan Cholecystitis, Abdominal pain, acute, Hypertension ED Provider Note NAME: DEREJE THOMPSON AGE: 28 SEX: Female INFORMANT: Patient ED PROVIDER(S): Adrian Bernal MD CHIEF COMPLAINT: Abdominal pain PLAN: Disposition: Admitted Outpatient prescription management: none Referral: None MEDICAL DECISION MAKING: Patient presented because of abdominal pain. She was very hypertensive. Nurses called me to her room and she was attended to promptly. Patient had hypertension issues prior to her delivery and even afterwards. She was in quite a bit of pain and I felt that this could be a cause of the elevated blood pressures to such an elevated level. Patient had IV established. She was treated with Zofran. She did have a lot of nausea as well. It did improve her symptoms quite a bit. She did have a slight leukocytosis on CBC. Chemistry panel as well as LFTs were unremarkable. CT imaging of the abdomen pelvis was performed. Patient's blood pressure improved significantly. She was also treated with morphine and Toradol. Patient has a distended gallbladder and stones seen. I did consult with general surgery. Patient was seen by Rito Pope PA-C. Patient will be admitted on the surgical service for further evaluation and management. Care/management discussed with: dealer sales manager Level of care consideration(s): After review of the information above and other included data, I feel the patient requires escalation of care to admission Triage Nursing notes: reviewed and agree them. Vital Signs: reviewed and remarkable for hypertension which improved significantly. Additional History obtained from: none Chronic Medical/Social Conditions affecting care: GERD Prior/ Outside/ External records reviewed: Prior obstetrical procedure note reviewed. Patient had peripartum hypertension Differential Diagnosis: PUD, pancreatitis, biliary pathology, Appendicitis, ovarian cyst, ovarian torsion, ectopic , TOA, PID, infections, diverticulitis, UTI, obstruction, mesenteric ischemia, aortic pathology, inflammatory bowel disease, renal colic, hernia, volvulus, constipation, preeclampsia, eclampsia, as well as other pathologies. Diagnostics, independently interpreted by me: ECG: none Cardiac Monitoring: Cardiac monitoring ordered by me: The patient was placed on continuous cardiac monitoring and observed. It revealed a normal sinus rhythm at 68 beats per minute without ectopy or evidence of dysrhythmia. Medical decision rules: none Imaging studies: I refer you to the EMR for further details. HPI: 28 year old Female arrives for evaluation of abdominal pain. Patient notes over the last 3 days she has had fluctuating abdominal pain which has been worse at night after eating dinner. She notes that her dinners consisted of steak as well as fried fish and macaroni and cheese. Patient developed worsening pain with nausea and vomiting today. She presented to the ER for further evaluation. Patient rated her pain as 10. Patient notes recent for gestational hypertension done just about 2 months ago. Patient states she is bottlefeeding. No issues with see section incision scar. Patient denies any significant problems with vaginal bleeding or fluid leaking. Pt denies LOC, headache, fevers, chills, diaphoresis, visual changes, neck pain, chest pain, breathing difficulties, back pain, melena, hematochezia, urinary symptoms, numbness, weakness, lymphadenopathy, rash, or other complaints. PAST MEDICAL HISTORY: See Below, gestational hypertension, GERD, PAST SURGICAL HISTORY: See Below, SOCIAL HISTORY: See Below, HOME MEDICATIONS: See Below ALLERGIES: See Below VITALS: See Below PHYSICAL EXAMINATION: GENERAL: Awake, alert, very uncomfortable-appearing, in no distress HENT: Normocephalic, atraumatic. Oropharynx unremarkable. EYES: Normal conjunctiva. Sclera non-icteric. NECK: Inspection normal. Non-tender. Supple. No nuchal rigidity. FROM. No masses. RESPIRATORY: Clear to auscultation. No wheezes. No rales. Normal respiratory effort. CARDIAC: Normal rate. Normal rhythm. No murmurs. No rubs. Extremities warm and well perfused. Pulses equal. No JVD. GI: Soft, non-distended. Right upper quadrant and epigastric tenderness to palpation. No rebound but mild guarding. No masses. RECTAL: Deferred. MUSCULOSKELETAL: Atraumatic. Chest examination reveals no tenderness. The back is symmetrical on inspection without obvious abnormality. There is no CVA tenderness to palpation. No joint edema. LOWER EXTREMITIES: Calves are equal size bilaterally and non-tender. No edema. No discoloration. NEURO: Normal sensorium. No sensory or motor deficits noted. SKIN: No rash or jaundice noted. PROCEDURES: none CRITICAL CARE: none OBSERVATION NOTE: none Past Med/Surg History Medical History care following delivery Elevated blood pressure affecting in third trimester, antepartum Obesity affecting Supervision of normal intrauterine in primigravida Migraines Vasovagal syncope with IV sticks and dehydration Suicide risk hx of suicidial thoughts- middle school age History of menorrhagia Common migraine without aura History of dysmenorrhea Tiredness Sleep disturbances night terrors Obesity Lactase deficiency Insomnia Generalized anxiety disorder on buspar prior to Encounter for gynecological examination Depression on meds prior to Asthma allergy induced- has rescue inhaler, used approx "awhile ago" Surgical History [place] teeth extracted 2018 History of tonsillectomy Family History Family/Other Adopted Mother Ovarian cancer Social History Smoking Status: Current every day smoker Tobacco Type: E-cigarettes / Vaping Second Hand Exposure: No; Do You Dip or Chew Tobacco: No; Hx Alcohol Use: No Hx Substance Use: No Preferred Language: Yoruba Communication Ability: Effective Visual Impairment: No Limitations Hearing Ability: Normal Application Software Developer Required: No Beliefs That Will Affect Care: None marital status: Single marital status details: [place] (25) [phone] Current Living Situation: Family Current Living Situation Comment: lives with both parents (Tod and Paulino Thompson) current occupational status: employed current occupation: [employer] Feels Safe at Home: Yes Dental Care, Regularly: Yes Seatbelt Use: always Assistive Devices: Glasses Allergies Allergies Allergy/AdvReac Type Severity Reaction Status Date / Time No Known Allergies Allergy Verified 12/02/23 23:52 Home Meds Home Medications Medication Instructions Recorded Confirmed desogestrel 0.15 mg-ethinyl 1 tab PO HS 12/02/23 12/02/23 estradiol 0.03 mg tablet (Apri) nystatin 100,000 unit/gram topical 1 applic topical TID PRN NEEDED 12/02/23 12/02/23 powder Previous Rx's Medication Instructions Recorded albuterol sulfate 90 mcg/actuation 2 inh inhalation Q4H PRN shortness 05/24/23 aerosol inhaler of breath or wheezing or cough #8.5 grams breast pump #1 ea 09/16/23 benzonatate 200 mg capsule 200 mg PO TID PRN cough #30 caps 11/14/23 Results & Data (ED) Vital Signs Vital Signs - 24 hr 12/02/23 21:02 12/02/23 21:08 12/02/23 21:26 Temperature 36.4 C L Temperature Source Temporal Artery Scan Pulse Rate 109 H 88 Pulse Rate [Right Finger] Pulse Rate from SpO2 Sensor 87 Respiratory Rate 13 Respiratory Effort / Characteristics Non-Labored Spontaneous Respiratory Depth Normal Respiratory Pattern Blood Pressure 182/118 H 130/102 H Blood Pressure [Left Arm] Blood Pressure Mean 139 111 Blood Pressure Mean [Left Arm] Pulse Oximetry 97 100 Oxygen Delivery Method Room Air Sepsis Recent Fever Within 48 Hours No Sepsis New/Unexplained Change in Mental Status No Sepsis Action Taken by Nursing No Action Required 12/02/23 21:30 12/02/23 21:30 12/02/23 21:45 Temperature Temperature Source Pulse Rate 90 91 H 93 H Pulse Rate [Right Finger] Pulse Rate from SpO2 Sensor 93 H 94 H Respiratory Rate 15 18 Respiratory Effort / Characteristics Respiratory Depth Respiratory Pattern Blood Pressure 130/86 154/97 H Blood Pressure [Left Arm] Blood Pressure Mean 100 116 Blood Pressure Mean [Left Arm] Pulse Oximetry 98 99 Oxygen Delivery Method Sepsis Recent Fever Within 48 Hours Sepsis New/Unexplained Change in Mental Status Sepsis Action Taken by Nursing 12/02/23 22:00 12/02/23 23:11 12/02/23 23:12 Temperature Temperature Source Pulse Rate 95 H 79 Pulse Rate [Right Finger] 83 Pulse Rate from SpO2 Sensor 95 H Respiratory Rate 14 14 16 Respiratory Effort / Characteristics Non-Labored Spontaneous Respiratory Depth Normal Respiratory Pattern Regular Blood Pressure 146/89 H 151/108 H Blood Pressure [Left Arm] 151/108 H Blood Pressure Mean 108 122 Blood Pressure Mean [Left Arm] 122 Pulse Oximetry 99 100 99 Oxygen Delivery Method Room Air Sepsis Recent Fever Within 48 Hours Sepsis New/Unexplained Change in Mental Status Sepsis Action Taken by Nursing 12/02/23 23:30 12/03/23 00:00 12/03/23 00:30 Temperature Temperature Source Pulse Rate 87 74 65 Pulse Rate [Right Finger] Pulse Rate from SpO2 Sensor Respiratory Rate 18 16 22 Respiratory Effort / Characteristics Respiratory Depth Respiratory Pattern Blood Pressure 154/107 H 122/84 137/74 Blood Pressure [Left Arm] Blood Pressure Mean 122 96 95 Blood Pressure Mean [Left Arm] Pulse Oximetry 98 95 96 Oxygen Delivery Method Sepsis Recent Fever Within 48 Hours Sepsis New/Unexplained Change in Mental Status Sepsis Action Taken by Nursing 12/03/23 01:30 Temperature Temperature Source Pulse Rate 68 Pulse Rate [Right Finger] Pulse Rate from SpO2 Sensor Respiratory Rate 12 Respiratory Effort / Characteristics Respiratory Depth Respiratory Pattern Blood Pressure 119/74 Blood Pressure [Left Arm] Blood Pressure Mean 89 Blood Pressure Mean [Left Arm] Pulse Oximetry 94 Oxygen Delivery Method Sepsis Recent Fever Within 48 Hours Sepsis New/Unexplained Change in Mental Status Sepsis Action Taken by Nursing Laboratory Data 12/02/23 21:25 12/02/23 21:25 Lab Results 12/02/23 Range/Units 21:25 WBC 15.19 H (4.8-10.8) K/ul RBC 5.96 H (4.20-5.40) M/uL Hgb 12.5 (12.0-16.0) g/dl Hct 43.1 (37.0-47.0) % MCV 72.3 L (80.0-100.0) fL MCH 21.0 L (25.0-34.0) pg MCHC 29.0 L (32.0-36.0) g/dL RDW Std Deviation 45.9 (36.4-46.3) fL RDW Coeff of Krista 19.1 H (11.5-14.5) % Plt Count 400 (130-400) K/uL MPV 10.5 (9.4-12.4) fL Immature Gran % (Auto) 0.5 % Neut % (Auto) 68.0 % Lymph % (Auto) 23.6 % [place] % (Auto) 5.3 % Eos % (Auto) 2.1 % Baso % (Auto) 0.5 % Neut # (Auto) 10.33 H (1.40-6.50) K/uL Lymph # (Auto) 3.59 H (1.20-3.40) K/uL [place] # (Auto) 0.81 H (0.11-0.59) K/uL Eos # (Auto) 0.32 (0.00-0.50) K/uL Baso # (Auto) 0.07 (0.00-0.20) K/uL Immature Gran # (Auto) 0.07 (0.01-0.20) K/uL Sodium 138 (136-145) mmol/L Potassium 4.0 (3.5-5.1) mmol/L Chloride 103 (98-107) mmol/L Carbon Dioxide 26 (21-32) mmol/L Anion Gap 9 (3-11) BUN 17 (6-23) mg/dl Creatinine 0.85 (0.6-1.2) mg/dl Est Cr Clr Drug Dosing 137.5 ml/min Est GFR ( Amer) 108.1 ml/min Est GFR (Non-Af Amer) 93.2 ml/min BUN/Creatinine Ratio 20.0 (10-20) Glucose 94 (70-99(Fasting)) mg/dl Calcium 9.0 (8.6-10.3) mg/dl Total Bilirubin 0.3 (0.2-1.0) mg/dl AST 11 L (13-39) U/L ALT 10 (7-52) U/L Alkaline Phosphatase 68 (34-104) U/L Total Protein 7.4 (6.0-8.3) gm/dl Albumin 3.9 (3.4-5.0) gm/dl Globulin 3.5 (2.5-4.0) gm/dl Albumin/Globulin Ratio 1.1 (0.9-2) Lipase 26 (11-82) U/L HCG, Qual Negative (Negative) Administered Medications Morphine Sulfate (Morphine Sulfate 10 Mg/Ml Carp/Vial) 6 mg IV Q15M PRN PRN Reason: Pain Stop: 12/16/23 21:58 Last Admin: 12/02/23 23:46 Dose: 6 mg Documented By: KEY Discontinued Medications Cefoxitin Sodium (Mefoxin) 2,000 mg in 60 mls @ 100 mls/hr IV NOW STA Stop: 12/03/23 00:39 Last Infusion: 12/03/23 01:28 Dose: Infused Documented By: Admin: 12/03/23 00:30 Dose: 100 mls/hr Documented By: KEY Ioversol (Optiray 320 100ml) 93 ml IV ONCE ONE Stop: 12/02/23 22:17 Last Admin: 12/02/23 22:17 Dose: 93 ml Documented By: ROBBY Ketorolac Tromethamine (Ketorolac Tromethamine 15 Mg/Ml Vial) 15 mg IV NOW ONE Stop: 12/02/23 23:42 Last Admin: 12/03/23 00:30 Dose: 15 mg Documented By: KEY Ondansetron HCl (Ondansetron Inj 2 Mg/Ml 2 Ml Vial) 4 mg IV NOW STA Stop: 12/02/23 22:00 Last Admin: 12/02/23 22:08 Dose: 4 mg Documented By: KEY Imaging Data Radiologist's Impression: Abdomen/Pelvis CT 12/02/23 21:59 Exam(s): CT ABDOMEN + PELVIS With Contrast IV Amt: 93 cc opt 320 EXAM: CT Abdomen and Pelvis With Intravenous Contrast CLINICAL HISTORY: Reason for exam: mid abd pain, c section 2 month ago. TECHNIQUE: Axial computed tomography images of the abdomen and pelvis with intravenous contrast. CTDI is 28.14 mGy and DLP is 1479.25 mGy-cm. Automated exposure control was utilized for the study. A dose lowering technique was utilized adhering to the principles of ALARA. CONTRAST: Patient received 93 cc opt 320 of IV contrast COMPARISON: No relevant prior studies available. FINDINGS: Lung bases: Unremarkable. No mass. No consolidation. ABDOMEN: Liver: Unremarkable. No mass. Gallbladder and bile ducts: Well-distended gallbladder. Small gallstones. No ductal dilation. Pancreas: Unremarkable. No mass. No ductal dilation. Spleen: Unremarkable. No splenomegaly. Adrenals: Unremarkable. No mass. Kidneys and ureters: Unremarkable. No solid mass. No hydronephrosis. Stomach and bowel: No obstruction or ileus. No evidence for diverticulitis. PELVIS: Appendix: No findings to suggest acute appendicitis. Bladder: Unremarkable. No mass. Reproductive: Uterus and ovaries are grossly unremarkable. ABDOMEN and PELVIS: Intraperitoneal space: No free air. No free fluid. Bones/joints: No acute fracture. Soft tissues: Minimal ventral pelvic subcutaneous scarring. No abnormal collection or hernia. Vasculature: Unremarkable. No abdominal aortic aneurysm. Lymph nodes: Unremarkable. No enlarged lymph nodes. IMPRESSION: Well-distended gallbladder with small gallstones. No evidence for common bile duct obstruction. No abnormal pelvic postoperative changes. Electronically signed by: Alonso Griffin M.D. 12/02/23 23:42 PM Discharge Plan Visit Data Chief Complaint: Abdominal Pain Stated Complaint: SEVERE ABD PAIN, NAUSEA/VOMITING/OF/ON ED Provider: Adrian Bernal Discharge Problem: Cholecystitis, Abdominal pain, acute, Hypertension Discharge Instructions Interventions: ED Discharge Assessment Last Done: 12/03/23 01:50 Forms Stand Alone Forms: My [facility] Prescriptions Prescriptions: No Action (DME) breast pump Device See Rx Instructions .Route Qty: 1 0RF Rx Instructions: As directed albuterol sulfate 90 mcg/actuation HFA aerosol inhaler 2 inh inhalation Q4H PRN (Reason: shortness of breath or wheezing or cough) Qty: 8.5 0RF benzonatate 200 mg capsule 200 mg PO TID PRN (Reason: cough) Qty: 30 0RF desogestrel-ethinyl estradiol [Apri] 0.15-0.03 mg tablet 1 tab PO HS nystatin 100,000 unit/gram powder 1 applic topical TID PRN (Reason: NEEDED) Referrals Referrals: Ree Nino MD [Primary Care Provider] -
[2023-12-03] MEDS ORDERED: ALBUTEROL HFA 8 GM INHALER INH PRN (02:23)
[2023-12-03] MEDS: SODIUM CHLORIDE 0.9% 1,000 ML IV SCH (02:30)
[2023-12-03 04:00] LABS: Appearance Urine Clear (Clear); Bacteria Urine Automated 1+ (Negative); Bilirubin Urine Negative (Negative); Blood Urine 3+ (Negative); Color Urine Dark Yellow; Epithelial Cell Urine Auto >30 /lpf (0-5); Glucose Urine UA Negative (Negative); Ketones Urine Trace (Negative); Leukocyte Esterase Urine Negative (Negative); Nitrite Urine Negative (Negative); Protein Urine 1+ (Negative); RBC Urine Automated >30 /hpf (0-4); Specific Gravity Urine > 1.045 (1.000-1.030); Urobilinogen Urine Negative (Negative); pH Urine 5.5 (4.5-7.5)
[2023-12-03 04:29] LABS: Cast Urine Automated 0 /lpf (0-5)
--- NOTE | 2023-12-03 05:09 | Ultrasound Report ---
Exam(s): US GALLBLADDER EXAM: US Abdomen Limited, Gallbladder CLINICAL HISTORY: Reason for exam: cholecystitis. TECHNIQUE: Real-time ultrasound of the right upper quadrant with image documentation. COMPARISON: None. FINDINGS: Limitations: Exam is limited due to gas artifact in the bowel. Liver: Diffuse fatty liver. The liver measures 17.3 cm. The portal vein reveals hepatopedal flow. Gallbladder: Multiple gallstones visualized, largest measuring 2.0 x 1. 3 x 2.0 cm and some located within the gallbladder neck. Gallbladder wall measuring 2.9 mm. No pericholecystic fluid or hyperemia. Negative Vale sign. Common bile duct: The common bile duct measures 4.1 mm. No stones. No dilation. Pancreas: Partial obscuration of the tail of the pancreas otherwise normal visualized pancreas. Right kidney: The right kidney measures 9.3 cm. IMPRESSION: 1. Diffuse fatty liver. Multiple gallstones with no signs of acute cholecystitis . 2. Remainder of the right upper quadrant ultrasound unremarkable. Electronically signed by: Corrine Espana MD 12/03/23 05:08 AM
[2023-12-03] MEDS: cefOXitin 2,000 MG in DEXTROSE 5 % MINI-B 50 ML IV SCH (05:27)
[2023-12-03 06:26] LABS: Basophils # (auto) 0.04 K/uL (0.00-0.20); Basophils % (auto) 0.3 %; Eosinophils % (auto) 1.6 %; Hematocrit (blood only) 36.7 % (37.0-47.0); Hemoglobin 10.8 g/dl (12.0-16.0); Immature Granulocytes # (auto) 0.07 K/uL (0.01-0.20); Immature Granulocytes % (auto) 0.6 %; Lymphocytes # (auto) 2.69 K/uL (1.20-3.40); Lymphocytes % (auto) 21.8 %; Mean Corpuscular Hemoglobin 21.2 pg (25.0-34.0); Mean Corpuscular Hgb Conc 29.4 g/dL (32.0-36.0); Mean Platelet Volume 10.6 fL (9.4-12.4); Monocytes # (auto) 0.65 K/uL (0.11-0.59); Monocytes % (auto) 5.3 %; Neutrophils # (auto) 8.67 K/uL (1.40-6.50); Neutrophils % (auto) 70.4 %; Platelet Count 315 K/uL (130-400); RDW Coefficient of Variation 18.5 % (11.5-14.5); RDW Standard Deviation 46.7 fL (36.4-46.3); White Blood Count 12.32 K/ul (4.8-10.8)
[2023-12-03 06:50] LABS: Albumin Globulin Ratio 1.2 (0.9-2); Albumin Level 3.3 gm/dl (3.4-5.0); BUN Creatinine Ratio 16.7 (10-20); Bilirubin,Total 0.4 mg/dl (0.2-1.0); Calcium 8.3 mg/dl (8.6-10.3); Creatinine Clr Calc Pharmacy 138.7 ml/min; Est GFR (African American) 109.6 ml/min; Est GFR (Non-African American) 94.6 ml/min; Globulin 2.8 gm/dl (2.5-4.0); Potassium 4.1 mmol/L (3.5-5.1); Total Protein 6.1 gm/dl (6.0-8.3)
[2023-12-03 06:59] LABS: Partial Thromboplastin Time 28 Seconds (21-31); Prothrombin Time 10.6 Seconds (9.0-12.0)
--- NOTE | 2023-12-03 10:29 | Discharge Summary ---
Date of Service December 03, 2023 Admission HPI Per Admitting Provider This is a 28-year-old female who is 9 weeks . The patient said that she had a in order to deliver her baby. She notes that this is her only previous abdominal surgery. She notes that over the past 3 days she has been having postprandial pain specifically after her evening meal. She notes that the pain got markedly worse over the past day and she therefore presented to the emergency department. She has had associated nausea and vomiting but denies any fevers, shakes, or chills. She does note that the pain is worse with palpation and is somewhat improved with medicines or administered in the emergency department. I did asked patient if she has been having postprandial pain during or before her which she denies. Concerning other medical issues the patient says she is only treated for asthma. She notes that her asthma is well-controlled and she only uses a rescue inhaler and can oftentimes go weeks without requiring it. Since arrival to the emergency department the patient had labs and imaging. A CT scan of the abdomen pelvis showed the patient's gallbladder was distended with multiple small gallstones. There is no ductal dilatation. Labs included CBC her white blood cell count was elevated 15.11. Hemoglobin and hematocrit were normal. Patient's platelet count was also normal. Chemistry profile showed sodium and potassium along with the BUN and creatinine were normal. There is no elevation of patient's LFTs or lipase. test was negative. Principal Diagnosis Biliary colic Discharge Exam Constitutional + obese; not disheveled, not in distress and not diaphoretic Respiratory normal respiratory effort; no respiratory distress, no labored breathing and does not use accessory muscles Gastrointestinal (Abdomen) Inspection/Auscultation: + significant pannus Percussion/Palpation: abdomen soft; abdomen nontender Discharge Data Allergies Allergy/AdvReac Type Severity Reaction Status Date / Time No Known Allergies Allergy Verified 12/02/23 23:52 Ordered Studies 12/02/23 21:59 CT Abd and Pelvis [CT abd pelvis IV con only] Stat 12/03/23 00:23 US GB [US gallbladder] Stat Hospital Course (1) Cholelithiasis: Due to the patient's clinical presentation and findings on imaging we will admit her to the surgical service for observation and proceed as follows: Provide analgesics Provide antiemetics Implement n.p.o. status The treating clinician in the emergency department has initiated cefoxitin and we will continue this medicine Will follow serial labs Will provide IV fluid for hydration The patient's gallbladder is noted to be distended and due to her leukocytosis this raises a concern for cholecystitis. Will therefore check a formal gallbladder ultrasound for further delineation of this -Hypertension, may consider medical consultation if worsening. The patient was reassessed later in the a.m., she had complete resolution of her symptoms as well as decreasing leukocytosis. Liver function tests remain without elevation. The patient was trialed on a low-fat and nondairy diet which she tolerated well without return of symptoms. The decision was then made to discharge the patient with follow-up to my office for consideration for cholecystectomy. Plan Follow-up with me in the office next week to discuss surgery planning. She should follow-up with her PCP in the meantime as well to for evaluation of hypertension, obesity to see if there are necessary changes that can or need to be initiated to make her more medically optimized for surgery. She is being sent home on Augmentin twice daily for 5 days. Total Time Total Time Spent Total Time Spent (In Minutes): 25 Discharge Plan Discharge Items Patient Disposition: Home - Self-Care Reason For Visit: ROLANDO Discharge Diagnosis: biliary colic Activity: Resume your previous activity Non-emergency contact: Primary Care Provider Call non-emergency contact if: your symptoms worsen and you have a fever Follow-up/Referrals: Ree Nino MD [Primary Care Provider] - Genny Peña DO [Physician] - Diet: Low Fat Diet Comment: no dairy, no creams, oils, no fried foods Addtl Attending Provider Instructions: Make an appointment to see me in the office next week Pending Studies at Discharge: No Stand-Alone Forms: [facility] [id number], Smoking Cessation Medications and DC Order Prescriptions: New amoxicillin-pot clavulanate [Augmentin] 500-125 mg tablet 1 tab PO BID Qty: 10 0RF Continued (DME) breast pump Device See Rx Instructions .Route Qty: 1 0RF Rx Instructions: As directed albuterol sulfate 90 mcg/actuation HFA aerosol inhaler 2 inh inhalation Q4H PRN (Reason: shortness of breath or wheezing or cough) Qty: 8.5 0RF benzonatate 200 mg capsule 200 mg PO TID PRN (Reason: cough) Qty: 30 0RF desogestrel-ethinyl estradiol [Apri] 0.15-0.03 mg tablet 1 tab PO HS nystatin 100,000 unit/gram powder 1 applic topical TID PRN (Reason: NEEDED) Discharge Orders: Discharge Order (Routine); Ordered 12/03/23 Ordered By: Genny Peña Admission Data Admit Date/Time: 12/03/23 00:26 Attending Provider: Genny Peña Admit Provider: Genny Peña Primary Care Provider: Ree Nino V. Supervising Physician Co-Signing Physician Notes I have seen and examined this patient. I agree with the above assessment Patient's symptoms have completely resolved. She was able to tolerate a regular, low-fat, nondairy diet this a.m. and is ready for discharge. Should follow-up with me in the office this week. Coding Level of Care Code 29046 IN/OBS DISCH 30 MIN/LESS Diagnoses Cholelithiasis K80.20
== END 2023-12-03 11:04 | disposition home or self-care (01) | DRG 445 ==
LOC: ED 21:01 → 3N 12-03 00:26